=== PATIENT | female | born 1970 | race American Indian/Alaskan Native ===

== ENCOUNTER 2017-07-01 17:49 | Emergency (ER) | payer SELFPAY ==
[2017-07-01 18:00] VITALS: BP 162/107
== END 2017-07-01 18:41 | disposition left against medical advice (07) ==
LOC: ED 17:49
DX: G43.909 Migraine, unspecified, not intractable, without status migrainosus (principal); Z53.21 Procedure and treatment not carried out due to patient leaving prior to being seen by health care provider

== ENCOUNTER 2017-07-02 21:25 | Emergency (ER) | payer SELFPAY ==
[2017-07-02] MEDS ORDERED: CATAPRES ONE (23:13)
[2017-07-02] MEDS ORDERED: CATAPRES PO ONE (23:18)
[2017-07-03] MEDS ORDERED: BOOSTRIX IM ONE (00:11)
--- NOTE | 2017-07-03 00:38 | XRay Report ---
FINAL REPORT EXAM: XR TIBIA FIBULA 2V LT HISTORY: Status post trauma, with laceration to mid leg. TECHNIQUE: Four total radiographs of the left lower leg were obtained. No prior studies are available for comparison. FINDINGS: There are multiple curvilinear radiopaque densities overlying images, presumably related to external clothing artifact. There is no fracture or dislocation. No metallic radiopaque foreign body is seen. No other discrete osseous abnormality is seen. No significant soft tissue abnormality is identified. IMPRESSION: No fracture, dislocation, or other osseous abnormality.
--- NOTE | 2017-07-03 00:42 | Emergency Department Report ---
ED Laceration HPI - HPI Chief Complaint: Wound/Laceration Stated Complaint: LT LEG PAIN Time Seen by Provider: 07/02/17 23:57 Occurred When: Today Severity: moderate Tetanus Status: Not up to Date Laceration Symptoms: Yes Weakness, Yes Pain (5/10), No Foreign Body Sensation, No Numbness ED Review of Systems ROS: Stated complaint: LT LEG PAIN Other details as noted in HPI Constitutional: denies: chills, fever Eyes: denies: eye pain, eye discharge, vision change ENT: denies: ear pain, throat pain Respiratory: denies: cough, shortness of breath, wheezing Cardiovascular: denies: chest pain, palpitations Endocrine: no symptoms reported Gastrointestinal: denies: abdominal pain, nausea, diarrhea Genitourinary: denies: urgency, dysuria, discharge Musculoskeletal: other (lacerion left tib fib ) Skin: denies: rash, lesions Neurological: denies: headache, weakness, paresthesias ED Past Medical Hx - Past Medical History Hx Headaches / Migraines: Yes - Social History Smoking Status: Never Smoker Substance Use Type: None - Medications Home Medications: Home Medications Medication Instructions Recorded Confirmed Last Taken Type Cephalexin [Keflex] 500 mg PO Q8HR #21 cap 07/03/17 Unknown Rx traMADol [Ultram] 50 mg PO Q6HR PRN #12 tablet 07/03/17 Unknown Rx Laceration Physical Exam - Exam General: Vital signs noted. No distress. Alert and acting appropriately. Laceration Location: Lower Extremity Full Body Front + Back: 1 - left tib/fib laceraion 2 cm no nerve or tendon involve, rom intact bleedin controlled Laceration Exam: Yes Normal Distal CMS, No Foreign Body, No Exposed Tendon, Vessel, or Nerve, No Tendon Injury ED Course Vital Signs 07/02/17 07/02/17 21:42 23:18 Temperature 98.2 F Pulse Rate 58 L 89 Respiratory 20 Rate Blood Pressure 208/107 204/114 O2 Sat by Pulse 100 Oximetry - Laceration /Wound Repair Left Lower Anterior Leg Wound Location: lower extremity Wound Length (cm): 2 Wound's Depth, Shape: superficial Wound Explored: clean Betadine Prep?: Yes Anesthesia: 1% Lidocaine Volume Anesthetic (ccs): 2 Wound Debrided: minimal Wound Repaired With: sutures Suture Size/Type: 3:0, proline Number of Sutures: 6 Layer Closure?: No Sterile Dressing Applied?: Yes Progress: left lower extrem laceration 2 cm superficial no nerve tendon or muscle inovlement no bleeding rom intact , suture repair wti 3. 0 prolene x 6 sutures running pt tolerating same with minimal distress all bleeding is controlled tetanus administered pt for dc to home at this time given wound care instructions pt is ambulatory gait is steady. ED Medical Decision Making - Radiology Data Radiology results: report reviewed, image reviewed no fracture no foreign body, - Medical Decision Making laceration left tibfib repair see procedure note all bleeding controlled pt tolerated procedure with minimal distress Critical care attestation.: If time is entered above; I have spent that time in minutes in the direct care of this critically ill patient, excluding procedure time. ED Disposition Clinical Impression: Laceration of lower leg, left Qualifiers: Encounter type: initial encounter Qualified Code(s): S81.812A - Laceration without foreign body, left lower leg, initial encounter Disposition: DC-01 TO HOME OR SELFCARE Is pt being admited?: No Does the pt Need Aspirin: No Condition: Good Instructions: Laceration (ED) Prescriptions: Cephalexin [Keflex] 500 mg PO Q8HR #21 cap traMADol [Ultram] 50 mg PO Q6HR PRN #12 tablet PRN Reason: Pain Referrals: PRIMARY CARE, [Primary Care Provider] - 3-5 Days Forms: Work/School Release Form(ED) Time of Disposition: 00:47
[2017-07-03 05:25] VITALS: BP 134/89
== END 2017-07-03 01:00 | disposition home or self-care (01) ==
LOC: ED 21:25
DX: S81.812A Laceration without foreign body, left lower leg, initial encounter (principal); X58.XXXA Exposure to other specified factors, initial encounter; Y93.89 Activity, other specified; Y92.89 Other specified places as the place of occurrence of the external cause; Y99.8 Other external cause status
CPT/HCPCS: 90471; 90715

== ENCOUNTER 2017-10-06 05:22 | Emergency (ER) | payer MEDICAID, OTHER ==
[2017-10-06 05:36] VITALS: BP 186/119
[2017-10-06] MEDS ORDERED: ASPIRIN PO ONE (05:36)
== END 2017-10-06 05:35 | disposition left against medical advice (07) ==
LOC: ED 05:22
DX: R07.89 Other chest pain (principal); Z53.21 Procedure and treatment not carried out due to patient leaving prior to being seen by health care provider
CPT/HCPCS: 93005; 93010

== ENCOUNTER 2017-11-07 17:11 | Emergency (ER) | payer SELFPAY ==
--- NOTE | 2017-11-07 22:08 | Emergency Department Report ---
Upper Extremity - HPI Chief Complaint: Extremity Injury, Upper Stated Complaint: CHEST PAINS/POSS PULLED MUSCLE Time Seen by Provider: 11/07/17 22:07 Upper Extremity: Right Shoulder, Right Arm Occurred When: 2 Days Symptoms: Yes Pain with Movement (muscle of the scapular area), No Deformity, No Limited Range of Movement, No Numbness, No Weakness, No Swelling, No Bruising /Ecchymosis, No Laceration or Abrasion Other History: 47-year-old -[place] female comes in complaining of pain to the right arm right shoulder and neck. Patient states 2 days ago she pulled a door off its hinges. Patient put she took Toradol 10 mg 6 hours ago. She reports it did not help. Patient denies any direct trauma or fall. She is a past medical history of migraines. No known drug allergies. ED Review of Systems ROS: Stated complaint: CHEST PAINS/POSS PULLED MUSCLE Other details as noted in HPI Comment: All other systems reviewed and negative Musculoskeletal: arthralgia, myalgia. denies: joint swelling ED Past Medical Hx - Past Medical History Hx Headaches / Migraines: Yes - Surgical History Past Surgical History?: No - Social History Smoking Status: Never Smoker Substance Use Type: None - Medications Home Medications: Home Medications Medication Instructions Recorded Confirmed Last Taken Type cephALEXin [Keflex] 500 mg PO Q8HR #21 cap 07/03/17 Unknown Rx traMADol [Ultram] 50 mg PO Q6HR PRN #12 tablet 07/03/17 Unknown Rx Cyclobenzaprine [Flexeril 10 MG 10 mg PO TID 5 Days #15 tablet 11/07/17 Unknown Rx TAB] Naproxen [Naprosyn TAB] 500 mg PO BID 10 Days #20 tablet 11/07/17 Unknown Rx amLODIPine [Norvasc] 10 mg PO DAILY #60 tab 11/07/17 Unknown Rx Upper Extremity Exam - Exam General: Vital signs noted. No distress. Alert and acting appropriately. Head and Torso: No HEENT Abnormality, No Neck Tenderness, No Chest/Lungs Abnormality, No Abdominal Tenderness, No Back Tenderness Shoulder Exam: Yes Shoulder Tenderness (right trapezius), Yes Normal Range of Motion in Shoulder, No Clavicle Tenderness, No Shoulder Deformity, No AC Joint Tenderness Arm Exam: No Arm/Humerus Tenderness, No Arm Deformity Elbow: Yes Normal Range of Motion in Elbow, No Elbow Tenderness, No Elbow Deformity Wrist: Yes Normal ROM in Wrist, No Wrist Tenderness, No Wrist Deformity, No Snuffbox Tenderness, No Pain with Axial Thumb Compression Hand: Yes Normal ROM in Digit(s), No Hand Tenderness, No Hand Deformity, No Digit Tenderness, No Digit(s) Deformity, No Tendon Dysfunction CMS Exam: No Broken Skin, No Normal Distal Pulses, No Normal Capillary Refill, No Normal Distal Sensation Front/Back of Body, Lg (Color): 1 - tenderness with touch and movement of shoulder ED Course Vital Signs 11/07/17 17:48 Temperature 98.6 F Pulse Rate 61 Respiratory 16 Rate Blood Pressure 178/109 O2 Sat by Pulse 99 Oximetry ED Medical Decision Making - Medical Decision Making Patient has been evaluated by this provider fast track. Given patient Flexeril 10 mg by mouth and naproxen 500 mg by mouth for pain management. Discussed the patient is she's had no trauma or direct blow to her shoulder back or neck. That x-rays are not needed at this time. Discussed patient is is most likely a muscle strain and we would treat conservatively with Flexeril and naproxen. Discussed patient if her symptoms persist or gets worse to follow -up with an orthopedic provider as she may need a MRI in the future. Patient verbalized understanding. Patient has elevated blood pressure she reports she's been out of her medication for a while. She reports that she was taken to amlodipine 10 mg daily. I discussed patient that I will refill her medication and stressed importance of following up with [facility]. Brochure was given to patient for [facility] as well as good Rx card given and explained to her that amlodipine is free at [facility]. Patient denies any change of vision denies any chest pain denies any headache. Critical care attestation.: If time is entered above; I have spent that time in minutes in the direct care of this critically ill patient, excluding procedure time. ED Disposition Clinical Impression: Shoulder strain Qualifiers: Encounter type: initial encounter Laterality: right Qualified Code(s): S46.911A - Strain of unspecified muscle, fascia and tendon at shoulder and upper arm level, right arm, initial encounter Acute strain of neck muscle Qualifiers: Encounter type: initial encounter Qualified Code(s): S16.1XXA - Strain of muscle, fascia and tendon at neck level, initial encounter HTN (hypertension) Qualifiers: Hypertension type: unspecified Qualified Code(s): I10 - Essential (primary) hypertension Disposition: TO HOME OR SELFCARE Is pt being admited?: No Does the pt Need Aspirin: No Condition: Stable Instructions: Naproxen (By mouth), Cyclobenzaprine (By mouth), Cervical Spine Strain (ED), Muscle Strain (ED), Rotator Cuff Injury (ED), Hypertension (ED) Additional Instructions: Please take pain medication as needed. If her symptoms persist or gets worse please follow up with orthopedic for reevaluation. Prescriptions: amLODIPine [Norvasc] 10 mg PO DAILY #60 tab Cyclobenzaprine [Flexeril 10 MG TAB] 10 mg PO TID 5 Days #15 tablet Naproxen [Naprosyn TAB] 500 mg PO BID 10 Days #20 tablet Referrals: PRIMARY CAREMD [Primary Care Provider] - 3-5 Days JENNIFER LYONS MD [Staff Physician] - 3-5 Days ELLIOT MALDONADO MD [Staff Physician] - 3-5 Days
[2017-11-07] MEDS ORDERED: FLEXERIL PO ONE (22:18)
[2017-11-07] MEDS ORDERED: NAPROSYN PO ONE (22:18)
[2017-11-07 23:07] VITALS: BP 167/113
== END 2017-11-07 23:06 | disposition home or self-care (01) ==
LOC: ED 17:11
DX: S46.911A Strain of unspecified muscle, fascia and tendon at shoulder and upper arm level, right arm, initial encounter (principal); S16.1XXA Strain of muscle, fascia and tendon at neck level, initial encounter; I10 Essential (primary) hypertension; G43.909 Migraine, unspecified, not intractable, without status migrainosus; X58.XXXA Exposure to other specified factors, initial encounter; Y93.89 Activity, other specified; Y92.89 Other specified places as the place of occurrence of the external cause; Y99.8 Other external cause status
CPT/HCPCS: 99282

== ENCOUNTER 2018-10-09 11:46 | Emergency (ER) | payer MEDICAID ==
--- NOTE | 2018-10-09 12:11 | Event Note ---
ED Screening Note ED Screening Note: pt presents for CONKLIN and anxiety and elevated blood pressure has not taken her high blood pressure medication in 3 days has not been to her doctor so she does not have any more refills hx of migraines This initial assessment/diagnostic orders/clinical plan/treatment(s) is/are subject to change based on patients health status, clinical progression and re- assessment by fellow clinical providers in the ED. Further treatment and workup at subsequent clinical providers discretion. Patient/guardian urged not to elope from the ED as their condition may be serious if not clinically assessed and managed.
[2018-10-09 12:13] VITALS: BP 155/97
[2018-10-09] MEDS ORDERED: ULTRAM PO ONE (13:19)
--- NOTE | 2018-10-09 13:25 | Emergency Department Report ---
ED General Adult HPI - General Chief complaint: High BP Stated complaint: HIGH BP/NAUSEA Time Seen by Provider: 10/09/18 12:10 Source: patient Mode of arrival: Ambulatory Limitations: No Limitations - History of Present Illness Initial comments: Mrs. Rosenthal is a 48-year-old female with history of hypertension, migraine headache and anxiety who presents with elevated blood pressure. She stated that her home reading was systolic 190 mm HG. she has been under a lot of stress. She desired medication for anxiety. She also has mild frontal headache which is typical for previous headaches. No suicidal or homicidal ideation. She has been living back and forth between [place] and [place]. She is attempted to establish medical care here in [place]. She says "I am starting all over. -: Gradual, days(s) (3) Location: head Severity scale (0 -10): 5 Quality: aching, dull Consistency: constant Improves with: none Worsens with: none Associated Symptoms: other (anxiety elevated blood pressure) - Related Data Previous Rx's Medication Instructions Recorded Last Taken Type cephALEXin [Keflex] 500 mg PO Q8HR #21 cap 07/03/17 Unknown Rx traMADol [Ultram] 50 mg PO Q6HR PRN #12 tablet 07/03/17 Unknown Rx Naproxen [Naprosyn TAB] 500 mg PO BID 10 Days #20 tablet 11/07/17 Unknown Rx Cyclobenzaprine [Flexeril 10 MG 10 mg PO TID PRN 5 Days #12 tablet 06/28/18 Unknown Rx TAB] Ibuprofen [Ibuprofen 800] 800 mg PO Q8H PRN #20 tablet 06/28/18 Unknown Rx amLODIPine [Norvasc] 10 mg PO DAILY #30 tab 06/28/18 Unknown Rx amLODIPine [Norvasc] 10 mg PO DAILY 90 Days #90 tab 10/09/18 Unknown Rx Allergies Allergy/AdvReac Type Severity Reaction Status Date / Time No Known Allergies Allergy Verified 10/09/18 11:48 ED Review of Systems ROS: Stated complaint: HIGH BP/NAUSEA Other details as noted in HPI Comment: All other systems reviewed and negative Constitutional: denies: fever, malaise Cardiovascular: denies: chest pain ED Past Medical Hx - Past Medical History Previous Medical History?: Yes Hx Hypertension: Yes Hx Headaches / Migraines: Yes Hx Psychiatric Treatment: Yes (anxiety) - Surgical History Past Surgical History?: Yes Additional Surgical History: right ankle - Social History Smoking Status: Never Smoker Substance Use Type: None - Medications Home Medications: Home Medications Medication Instructions Recorded Confirmed Last Taken Type cephALEXin [Keflex] 500 mg PO Q8HR #21 cap 07/03/17 Unknown Rx traMADol [Ultram] 50 mg PO Q6HR PRN #12 tablet 07/03/17 Unknown Rx Naproxen [Naprosyn TAB] 500 mg PO BID 10 Days #20 tablet 11/07/17 Unknown Rx Cyclobenzaprine [Flexeril 10 MG 10 mg PO TID PRN 5 Days #12 tablet 06/28/18 Unknown Rx TAB] Ibuprofen [Ibuprofen 800] 800 mg PO Q8H PRN #20 tablet 06/28/18 Unknown Rx amLODIPine [Norvasc] 10 mg PO DAILY #30 tab 06/28/18 Unknown Rx amLODIPine [Norvasc] 10 mg PO DAILY 90 Days #90 tab 10/09/18 Unknown Rx ED Physical Exam - General Limitations: No Limitations General appearance: alert, in no apparent distress - Head Head exam: Present: atraumatic, normocephalic - Eye Eye exam: Present: normal appearance - ENT ENT exam: Present: mucous membranes moist - Neck Neck exam: Present: normal inspection - Respiratory Respiratory exam: Present: normal lung sounds bilaterally. Absent: respiratory distress, wheezes, rales, rhonchi - Cardiovascular Cardiovascular Exam: Present: regular rate, normal rhythm, normal heart sounds. Absent: systolic murmur, diastolic murmur, rubs, gallop - GI/Abdominal GI/Abdominal exam: Present: soft, normal bowel sounds. Absent: distended, tenderness, guarding, rebound - Extremities Exam Extremities exam: Present: normal inspection - Back Exam Back exam: Present: normal inspection - Neurological Exam Neurological exam: Present: alert, oriented X3 - Psychiatric Psychiatric exam: Present: normal affect, normal mood - Skin Skin exam: Present: warm, dry, intact, normal color. Absent: rash ED Course Vital Signs 10/09/18 12:08 Temperature 98.1 F Pulse Rate 55 L Respiratory 16 Rate Blood Pressure 155/97 O2 Sat by Pulse 100 Oximetry ED Medical Decision Making - Medical Decision Making 1. tension headache, typical headache for patient, mild in severity. She appears comfortable. No red flags to indicate a dangerous type headache. It just with oral analgesic administered in the emergency department 2. Anxiety, referred to [facility]. 3. Hypertension, medication refill. According to electronic medical record she has previously been prescribed amlodipine 10 mg tablets. I have prescribed a 90 day supply of amlodipine. Critical care attestation.: If time is entered above; I have spent that time in minutes in the direct care of this critically ill patient, excluding procedure time. ED Disposition Clinical Impression: Hypertension, Anxiety, Tension headache Disposition: TO HOME OR SELFCARE Is pt being admited?: No Does the pt Need Aspirin: No Condition: Stable Instructions: Hypertension (ED), Tension Headache (ED), Anxiety (ED) Prescriptions: amLODIPine [Norvasc] 10 mg PO DAILY 90 Days #90 tab Referrals: [facility] [Outside] - 3-5 Days [facility] [Outside] - 3-5 Days
== END 2018-10-09 13:38 | disposition home or self-care (01) ==
LOC: ED 11:46
DX: I10 Essential (primary) hypertension (principal); F41.9 Anxiety disorder, unspecified; G43.909 Migraine, unspecified, not intractable, without status migrainosus; Z98.890 Other specified postprocedural states; Z79.899 Other long term (current) drug therapy
CPT/HCPCS: 99282

== ENCOUNTER 2019-06-25 02:56 | Emergency (ER) | payer MEDICAID ==
[2019-06-25] MEDS ORDERED: ASPIRIN 325 MG TAB PO ONE (03:03)
[2019-06-25] MEDS ORDERED: LIDOCAINE VISCOUS 2% 15 ML ORAL LIQD PO ONE (03:26)
[2019-06-25] MEDS ORDERED: ALUM-MAG HYDROXIDE-SIMETHICONE 200-200-20MG/5ML ORAL LIQD 30 ML PO ONE (03:26)
--- NOTE | 2019-06-25 03:28 | Emergency Department Report ---
ED Chest Pain HPI - General Chief Complaint: Chest Pain Stated Complaint: CHEST PAIN Time Seen by Provider: 06/25/19 03:18 Source: patient Mode of arrival: Ambulatory Limitations: No Limitations - History of Present Illness Initial Comments: 49-year-old -Tog[place] female presents to the emergency department from home with a complaint of some midsternal chest discomfort that is been going on for the past 2 days. It worsens after eating and when laying flat. She says it feels like there is something stuck in there but she does not actually think that there is food lodged inside. She tried some Pepcid AC with some transient relief. She has a past medical history of hypertension, migraine headaches and anxiety. She denies any fever, shortness of breath, nausea and vomiting but does have some increased burping. No recent travel or sick contacts at home. She does not have a primary care physician. Denies any tobacco or illicit drug use. Severity scale (0 -10): 10 - Related Data Previous Rx's Medication Instructions Recorded Last Taken Type cephALEXin [Keflex] 500 mg PO Q8HR #21 cap 07/03/17 Unknown Rx traMADoL [Ultram] 50 mg PO Q6HR PRN #12 tablet 07/03/17 Unknown Rx Naproxen [Naprosyn TAB] 500 mg PO BID 10 Days #20 tablet 11/07/17 Unknown Rx Cyclobenzaprine [Flexeril 10 MG 10 mg PO TID PRN 5 Days #12 tablet 06/28/18 Unknown Rx TAB] Ibuprofen [Ibuprofen 800] 800 mg PO Q8H PRN #20 tablet 06/28/18 Unknown Rx amLODIPine 10 mg PO DAILY #30 tab 06/28/18 Unknown Rx amLODIPine 10 mg PO DAILY 90 Days #90 tab 10/09/18 Unknown Rx Omeprazole 20 mg PO QDAY #20 capsule. 06/25/19 Unknown Rx Allergies Allergy/AdvReac Type Severity Reaction Status Date / Time No Known Allergies Allergy Verified 10/09/18 11:48 Heart Score - HEART Score History: Slightly suspicious EKG: Normal Age: 45-65 Risk factors: 1-2 risk factors Troponin: < normal limit HEART Score: 2 - Critical Actions Critical Actions: 0-3 pts:0.9-1.7%risk of adverse cardiac event.Candidate for discharge ED Review of Systems ROS: Stated complaint: CHEST PAIN Other details as noted in HPI Comment: All other systems reviewed and negative Constitutional: denies: chills, fever Eyes: denies: eye pain, vision change ENT: denies: ear pain, throat pain Respiratory: denies: cough, shortness of breath Cardiovascular: chest pain. denies: palpitations Gastrointestinal: denies: abdominal pain, vomiting Genitourinary: denies: dysuria, discharge Musculoskeletal: denies: back pain, arthralgia Skin: denies: rash, lesions Neurological: denies: headache, weakness ED Past Medical Hx - Past Medical History Previous Medical History?: Yes Hx Hypertension: Yes Hx Headaches / Migraines: Yes Hx Psychiatric Treatment: Yes (anxiety) - Surgical History Past Surgical History?: Yes Additional Surgical History: right ankle. left toe - Social History Smoking Status: Never Smoker Substance Use Type: None - Medications Home Medications: Home Medications Medication Instructions Recorded Confirmed Last Taken Type cephALEXin [Keflex] 500 mg PO Q8HR #21 cap 07/03/17 Unknown Rx traMADoL [Ultram] 50 mg PO Q6HR PRN #12 tablet 07/03/17 Unknown Rx Naproxen [Naprosyn TAB] 500 mg PO BID 10 Days #20 tablet 11/07/17 Unknown Rx Cyclobenzaprine [Flexeril 10 MG 10 mg PO TID PRN 5 Days #12 tablet 06/28/18 Unknown Rx TAB] Ibuprofen [Ibuprofen 800] 800 mg PO Q8H PRN #20 tablet 06/28/18 Unknown Rx amLODIPine 10 mg PO DAILY #30 tab 06/28/18 Unknown Rx amLODIPine 10 mg PO DAILY 90 Days #90 tab 10/09/18 Unknown Rx Omeprazole 20 mg PO QDAY #20 capsule. 06/25/19 Unknown Rx ED Physical Exam - General Limitations: No Limitations - Other Other exam information: GENERAL: The patient is well-developed well-nourished. HENT: Normocephalic. Atraumatic. Patient has moist mucous membranes. EYES: Extraocular motions are intact. NECK: Supple. Trachea is midline. CHEST/LUNGS: Clear to auscultation. There is no respiratory distress noted. HEART/CARDIOVASCULAR: Regular. There is no tachycardia. ABDOMEN: Abdomen is soft, nontender. Patient has normal bowel sounds. SKIN: Skin is warm and dry. NEURO: The patient is awake, alert, and oriented. The patient is cooperative. The patient has no focal neurologic deficits. Normal speech. MUSCULOSKELETAL: There is no tenderness or deformity. There is no evidence of acute injury. ED Course Vital Signs 06/25/19 06/25/19 06/25/19 03:06 03:20 03:45 Temperature 97.8 F 98.3 F Pulse Rate 74 74 57 L Respiratory 18 14 17 Rate Blood Pressure 166/100 Blood Pressure 191/124 164/102 [Right] O2 Sat by Pulse 100 99 99 Oximetry 06/25/19 06/25/19 04:00 04:15 Temperature Pulse Rate 54 L 59 L Respiratory 18 15 Rate Blood Pressure 168/90 168/96 Blood Pressure [Right] O2 Sat by Pulse 98 97 Oximetry TYSON score - Tyson Score Age > 65: (0) No Aspirin use within the Past 7 Days: (0) No 3 or more CAD Risk Factors: (0) No 2 or more Angina events in past 24 hrs: (1) Yes (If pain is considered angina) Known CAD with more than 50% Stenosis: (0) No Elevated Cardiac Markers: (0) No ST Deviation Greater than 0.5mm: (0) No TYSON Score: 1 ED Medical Decision Making - Lab Data Result diagrams: 06/25/19 03:16 06/25/19 03:16 - EKG Data -: EKG Interpreted by Me EKG shows normal: sinus rhythm, axis, intervals, QRS complexes (LVH), ST-T waves Rate: normal - EKG Data When compared to previous EKG there are: previous EKG unavailable Interpretation: LVH - Radiology Data Radiology results: image reviewed interpreted by me: Chest x-ray does not show any acute process. There are no pleural effusions, obvious pneumonia and there is no pneumothorax. - Medical Decision Making This patient presents to the emergency department with a complaint of a 2-day history of some midsternal intermittent chest discomfort that feels like there is something stuck inside of the chest. While it is not a burning sensation, the patient does have increased burping and says that the pain worsens when she is laying flat and after meals. She was given a GI cocktail and upon reevaluation she is feeling improved. Patient had a chest x-ray that did not show any pneumonia, pleural effusions, pneumothorax, or any other acute process. EKG did not show any signs of ST elevation [place]. Patient's labs have been mostly unremarkable including CBC, metabolic panel and negative troponins x2. She is low on the Wells score criteria and negative on the pulmonary embolism rule out criteria. Patient has a low heart and TYSON score. Even though there may be GI involvement and her chest discomfort, the patient's contact information has been sent over to [facility] [place] and someone from their office should be contacting her shortly for close outpatient follow- up as per our chest pain rule out protocol. The patient will be started on omeprazole. We discussed dietary and/or lifestyle changes to make to assist with GERD. Patient will return to the emergency department with any worsening of her symptoms or any acute distress. Critical Care Time: No Critical care attestation.: If time is entered above; I have spent that time in minutes in the direct care of this critically ill patient, excluding procedure time. ED Disposition Clinical Impression: Chest pain, atypical GERD (gastroesophageal reflux disease) Qualifiers: Esophagitis presence: esophagitis presence not specified Qualified Code(s): K21.9 - Gastro-esophageal reflux disease without esophagitis Hypertension Qualifiers: Hypertension type: essential hypertension Qualified Code(s): I10 - Essential (primary) hypertension Disposition: TO HOME OR SELFCARE Is pt being admited?: No Condition: Stable Instructions: Chest Pain (ED), Diet for Ulcers and Gastritis (ED), Gastroesophageal Reflux Disease (ED), Hypertension (ED) Additional Instructions: Please follow-up with a primary care physician in the next few days. Your contact information has been sent over to the [facility] [place] and someone from their office should be contacting you shortly for close outpatient follow-up. Return to the emergency department with any worsening of your symptoms or any acute distress. Prescriptions: Omeprazole 20 mg PO QDAY #20 capsule. Referrals: DOROTA GARCIA MD [Primary Care Provider] - 2-3 Days IHSAN FOLEY MD [Staff Physician] - 2-3 Days EUNICE BOURGEOIS MD [Staff Physician] - 2-3 Days [facility] [Provider Group] - 2-3 Days Time of Disposition: 05:27
[2019-06-25 03:30] LABS: Basophils % (Auto) 0.4 % (0.0-1.8); Eosinophils # (Auto) 0.2 K/mm3 (0.0-0.4); Eosinophils % (Auto) 3.1 % (0.0-4.3); Hematocrit 38.2 % (30.3-42.9); Hemoglobin 12.4 gm/dl (10.1-14.3); Lymphocytes % (Auto) 35.2 % (13.4-35.0); Mean Corpuscular HGB Conc 32 % (30-34); Mean Corpuscular Volume 84 fl (79-97); Monocytes # (Auto) 0.5 K/mm3 (0.0-0.8); Monocytes % (Auto) 8.3 % (0.0-7.3); Platelet Count 234 K/mm3 (140-440); Red Blood Count 4.53 M/mm3 (3.65-5.03); Red Cell Distribution Width 14.6 % (13.2-15.2)
--- NOTE | 2019-06-25 03:41 | XRay Report ---
CHEST 1 VIEW INDICATION: Chest Pain. COMPARISON: None. FINDINGS: Support devices: None. Heart: Within normal limits. Lungs/Pleura: No acute air space or interstitial disease. Lung volumes are diminished. Additional findings: None. IMPRESSION: No acute abnormality. Signer Name: Adan Valiente MD Signed: 06/25/2019 3:36 AM Workstation Name: [id number]
[2019-06-25 03:42] LABS: BUN/Creatinine Ratio 18; Blood Urea Nitrogen 14 mg/dL (7-17); Calcium 9.5 mg/dL (8.4-10.2); Hemolysis Index 5
[2019-06-25 05:31] VITALS: BP 169/104
== END 2019-06-25 05:33 | disposition home or self-care (01) ==
LOC: ED 02:56
DX: R07.89 Other chest pain (principal); K21.9 Gastro-esophageal reflux disease without esophagitis; I10 Essential (primary) hypertension; G43.909 Migraine, unspecified, not intractable, without status migrainosus; F41.9 Anxiety disorder, unspecified; Z98.890 Other specified postprocedural states; Z79.1 Long term (current) use of non-steroidal anti-inflammatories (NSAID); Z79.899 Other long term (current) drug therapy
CPT/HCPCS: 36415; 71045; 80048; 84484; 85025; 93005

== ENCOUNTER 2019-07-30 23:27 | Inpatient (IN) | payer MEDICAID ==
[2019-07-30] MEDS ORDERED: NITROGLYCERIN 0.4 MG TAB SUBL SL ONE (23:58)
[2019-07-30] MEDS ORDERED: ASPIRIN 81 MG TAB CHEW PO ONE (23:58)
--- NOTE | 2019-07-31 00:01 | Emergency Department Report ---
<DEMETRI KNIGHT - Last Filed: 07/30/19 23:58> ED Chest Pain HPI - General Chief Complaint: Chest Pain Stated Complaint: ABD CHEST PAIN Time Seen by Provider: 07/30/19 23:50 Source: patient Mode of arrival: Ambulatory Limitations: No Limitations - History of Present Illness MD Complaint: chest pain -: This morning Onset: during rest Pain Location: substernal Pain Radiation: none Severity: moderate Quality: heaviness - Related Data Previous Rx's Medication Instructions Recorded Last Taken Type cephALEXin [Keflex] 500 mg PO Q8HR #21 cap 07/03/17 Unknown Rx traMADoL [Ultram] 50 mg PO Q6HR PRN #12 tablet 07/03/17 Unknown Rx Naproxen [Naprosyn TAB] 500 mg PO BID 10 Days #20 tablet 11/07/17 Unknown Rx Cyclobenzaprine [Flexeril 10 MG 10 mg PO TID PRN 5 Days #12 tablet 06/28/18 Unknown Rx TAB] Ibuprofen [Ibuprofen 800] 800 mg PO Q8H PRN #20 tablet 06/28/18 Unknown Rx amLODIPine 10 mg PO DAILY #30 tab 06/28/18 Unknown Rx amLODIPine 10 mg PO DAILY 90 Days #90 tab 10/09/18 Unknown Rx Omeprazole 20 mg PO QDAY #20 capsule. 06/25/19 Unknown Rx Allergies Allergy/AdvReac Type Severity Reaction Status Date / Time No Known Allergies Allergy Verified 07/30/19 23:33 Heart Score - HEART Score History: Moderately suspicious EKG: Non-specific Age: 45-65 Risk factors: 1-2 risk factors Troponin: < normal limit HEART Score: 4 - Critical Actions Critical Actions: 4-6 pts:12-16.6% risk of adverse cardiac event. Should be admitted ED Review of Systems Comment: All other systems reviewed and negative Constitutional: denies: chills, fever Respiratory: denies: cough, shortness of breath, SOB with exertion, wheezing Cardiovascular: chest pain. denies: palpitations, dyspnea on exertion Gastrointestinal: denies: abdominal pain, nausea, vomiting Musculoskeletal: denies: back pain Neurological: denies: headache, weakness, numbness, paresthesias, confusion, abnormal gait ED Past Medical Hx - Past Medical History Hx Hypertension: Yes Hx Headaches / Migraines: Yes Hx Psychiatric Treatment: Yes (anxiety) - Surgical History Additional Surgical History: right ankle. left toe - Social History Smoking Status: Never Smoker Substance Use Type: None - Medications Home Medications: Home Medications Medication Instructions Recorded Confirmed Last Taken Type cephALEXin [Keflex] 500 mg PO Q8HR #21 cap 07/03/17 Unknown Rx traMADoL [Ultram] 50 mg PO Q6HR PRN #12 tablet 07/03/17 Unknown Rx Naproxen [Naprosyn TAB] 500 mg PO BID 10 Days #20 tablet 11/07/17 Unknown Rx Cyclobenzaprine [Flexeril 10 MG 10 mg PO TID PRN 5 Days #12 tablet 06/28/18 Unknown Rx TAB] Ibuprofen [Ibuprofen 800] 800 mg PO Q8H PRN #20 tablet 06/28/18 Unknown Rx amLODIPine 10 mg PO DAILY #30 tab 06/28/18 Unknown Rx amLODIPine 10 mg PO DAILY 90 Days #90 tab 10/09/18 Unknown Rx Omeprazole 20 mg PO QDAY #20 capsule. 06/25/19 Unknown Rx ED Physical Exam - General Limitations: No Limitations General appearance: alert, in no apparent distress - Head Head exam: Present: atraumatic, normocephalic, normal inspection - Eye Eye exam: Present: normal appearance - ENT ENT exam: Present: normal exam, normal orophraynx, mucous membranes moist - Neck Neck exam: Present: normal inspection, full ROM. Absent: tenderness, meningismus, lymphadenopathy, thyromegaly - Respiratory Respiratory exam: Present: normal lung sounds bilaterally - Cardiovascular Cardiovascular Exam: Present: regular rate, normal rhythm, normal heart sounds - GI/Abdominal GI/Abdominal exam: Present: soft, normal bowel sounds. Absent: distended, tend erness, guarding, rebound, rigid, organomegaly, mass, bruit, pulsatile mass, hernia - Extremities Exam Extremities exam: Present: normal inspection, full ROM, normal capillary refill. Absent: pedal edema, calf tenderness - Back Exam Back exam: Present: normal inspection, full ROM. Absent: CVA tenderness (R), CVA tenderness (L), muscle spasm, paraspinal tenderness, vertebral tenderness - Neurological Exam Neurological exam: Present: alert, oriented X3, CN II-XII intact, normal gait, reflexes normal - Psychiatric Psychiatric exam: Present: normal mood - Skin Skin exam: Present: warm, intact, normal color LILY score - Lily Score Age > 65: (0) No Aspirin use within the Past 7 Days: (0) No 3 or more CAD Risk Factors: (0) No 2 or more Angina events in past 24 hrs: (1) Yes (If pain is considered angina) Known CAD with more than 50% Stenosis: (0) No Elevated Cardiac Markers: (0) No ST Deviation Greater than 0.5mm: (0) No LILY Score: 1 ED Disposition Clinical Impression: Acute cholecystitis Chest pain Qualifiers: Chest pain type: unspecified Qualified Code(s): R07.9 - Chest pain, unspecified Abdominal pain Qualifiers: Abdominal location: unspecified location Qualified Code(s): R10.9 - Unspecified abdominal pain Cholelithiasis Qualifiers: Cholelithiasis location: bile duct Cholecystitis presence: with cholecystitis Cholecystitis acuity: acute Biliary obstruction: without biliary obstruction Qualified Code(s): K80.42 - Calculus of bile duct with acute cholecystitis without obstruction Disposition: OP ADMIT IP TO THIS HOSP Condition: Critical <DUNG WREN III - Last Filed: 07/31/19 02:47> ED Review of Systems ROS: Stated complaint: ABD CHEST PAIN Other details as noted in HPI ED Course Vital Signs 07/30/19 07/30/19 07/31/19 23:31 23:55 00:11 Temperature 98.3 F Pulse Rate 88 83 83 Respiratory 18 12 Rate Blood Pressure 187/110 187/105 Blood Pressure 178/88 [Left] O2 Sat by Pulse 98 100 Oximetry 07/31/19 00:43 Temperature Pulse Rate Respiratory 18 Rate Blood Pressure Blood Pressure [Left] O2 Sat by Pulse Oximetry - Reevaluation(s) Reevaluation #1: Patient was signed out to me by at change of shift. Patient was signed out for me to follow-up on CT scan and labs. 07/31/19 02:00 Reevaluation #2: Patient CT came back as positive for cholecystitis. I discussed all results with patient. I discussed plan of care with patient. Patient agrees with plan of care and admission. Patient to be admitted to the hospitalist service. 07/31/19 02:40 - Consultations Consultation #1: General surgery, Dr. Parada was consulted and I discussed case with Dr. Parada. Dr. Parada recommends admission, Zosyn, fluids, pain management and an ultrasound. 07/31/19 02:41 Consultation #2: Hospitalist consulted for admission. Hospitalist to admit patient. Bridge orders placed 07/31/19 02:45 ED Medical Decision Making - Lab Data Result diagrams: 07/31/19 00:32 07/31/19 00:32 - Radiology Data Radiology results: report reviewed CT ABDOMEN AND PELVIS WITH CONTRAST INDICATION: Acute substernal abdominal pain. COMPARISON: No relevant prior imaging study available. TECHNIQUE: Axial, coronal and sagittal CT imaging of the abdomen and pelvis was performed after injection of 100 cc Omnipaque [address] scans at this location are performed using CT dose reduction for ALARA by means of automated exposure control. FINDINGS: LOWER CHEST: No significant abnormality. LIVER: Multiple simple appearing cysts are seen throughout the liver measuring up to 1.5 cm along the lateral segment. No additional significant abnormality. BILIARY: Cholelithiasis is seen with mild gallbladder wall thickening and mild to moderate surrounding inflammation. The common bile duct is mildly dilated and measures 9 mm in AP diameter without distinct choledocholithiasis. PANCREAS: No significant abnormality. SPLEEN: No significant abnormality. ADRENALS: No significant abnormality. KIDNEYS AND URETERS: Simple appearing left renal cysts measure up to 2.6 cm along the upper pole. No additional significant abnormality. GI TRACT: Scattered colonic diverticulosis is seen without evidence of diverticulitis. No additional significant abnormality of the colon. No significant abnormality of the appendix, small bowel or stomach. PERITONEUM: No free fluid. No free air. No fluid collection. LYMPH NODES: No significant adenopathy. VASCULATURE: No significant abnormality. URINARY BLADDER: No significant abnormality. REPRODUCTIVE ORGANS: No significant abnormality. ADDITIONAL FINDINGS: None. SKELETAL SYSTEM: Mild to moderate degenerative changes are noted along the SI joints. No acute abnormality. IMPRESSION: 1. Cholelithiasis with suspected acute cholecystitis. 2. Mild intrahepatic and extrahepatic biliary ductal dilatation without distinct choledocholithiasis. Critical care attestation.: If time is entered above; I have spent that time in minutes in the direct care of this critically ill patient, excluding procedure time. ED Disposition Is pt being admited?: Yes Does the pt Need Aspirin: No Time of Disposition: 02:47
--- NOTE | 2019-07-31 00:19 | XRay Report ---
CHEST 1 VIEW 07/30/2019 11:55 PM INDICATION / CLINICAL INFORMATION: Chest Pain. COMPARISON: One view of the chest from 06/25/2019. FINDINGS: SUPPORT DEVICES: None. HEART / MEDIASTINUM: No significant abnormality. LUNGS / PLEURA: There is a probable small layering right pleural effusion with associated atelectasis . The lungs are otherwise clear. No pneumothorax. ADDITIONAL FINDINGS: No significant additional findings. IMPRESSION: Probable small right pleural effusion with associated atelectasis. Signer Name: Jeff Novak MD Signed: 07/31/2019 12:14 AM Workstation Name: [id number]
[2019-07-31] MEDS ORDERED: MORPHINE 4 MG/1 ML INJ IV ONE (00:33)
[2019-07-31] MEDS ORDERED: ONDANSETRON 4 MG/2 ML INJ IV ONE (00:33)
[2019-07-31 00:53] LABS: Basophils % (Auto) 0.2 % (0.0-1.8); Eosinophils % (Auto) 0.6 % (0.0-4.3); Hematocrit 34.8 % (30.3-42.9); Hemoglobin 11.4 gm/dl (10.1-14.3); Lymphocytes # (Auto) 1.2 K/mm3 (1.2-5.4); Mean Corpuscular HGB Conc 33 % (30-34); Mean Corpuscular Volume 83 fl (79-97); Monocytes # (Auto) 0.5 K/mm3 (0.0-0.8); Platelet Count 207 K/mm3 (140-440); Red Cell Distribution Width 14.2 % (13.2-15.2)
[2019-07-31 01:04] LABS: INR 1.12 (0.87-1.13); Partial Thromboplastin Time 28.4 Sec. (24.2-36.6)
[2019-07-31 01:23] LABS: BUN/Creatinine Ratio 14; Blood Urea Nitrogen 10 mg/dL (7-17); Hemolysis Index 10
[2019-07-31 01:28] LABS: Alanine Aminotransferase 17 units/L (7-56)
[2019-07-31] MEDS ORDERED: LIDOCAINE VISCOUS 2% 15 ML ORAL LIQD PO ONE (01:31)
[2019-07-31] MEDS ORDERED: ALUM-MAG HYDROXIDE-SIMETHICONE 200-200-20MG/5ML ORAL LIQD 30 ML PO ONE (01:31)
[2019-07-31 01:38] LABS: Bilirubin,Direct < 0.2 mg/dL (0-0.2)
--- NOTE | 2019-07-31 02:25 | Cat Scan Report ---
CT ABDOMEN AND PELVIS WITH CONTRAST INDICATION: Acute substernal abdominal pain. COMPARISON: No relevant prior imaging study available. TECHNIQUE: Axial, coronal and sagittal CT imaging of the abdomen and pelvis was performed after inje ction of 100 cc Omnipaque [address] scans at this location are performed using CT dose re duction for ALARA by means of automated exposure control. FINDINGS: LOWER CHEST: No significant abnormality. LIVER: Multiple simple appearing cysts are seen throughout the liver measuring up to 1.5 cm along the lateral segment. No additional significant abnormality. BILIARY: Cholelithiasis is seen with mild gallbladder wall thickening and mild to moderate surroundin g inflammation. The common bile duct is mildly dilated and measures 9 mm in AP diameter without disti nct choledocholithiasis. PANCREAS: No significant abnormality. SPLEEN: No significant abnormality. ADRENALS: No significant abnormality. KIDNEYS AND URETERS: Simple appearing left renal cysts measure up to 2.6 cm along the upper pole. No additional significant abnormality. GI TRACT: Scattered colonic diverticulosis is seen without evidence of diverticulitis. No additional significant abnormality of the colon. No significant abnormality of the appendix, small bowel or stom ach. PERITONEUM: No free fluid. No free air. No fluid collection. LYMPH NODES: No significant adenopathy. VASCULATURE: No significant abnormality. URINARY BLADDER: No significant abnormality. REPRODUCTIVE ORGANS: No significant abnormality. ADDITIONAL FINDINGS: None. SKELETAL SYSTEM: Mild to moderate degenerative changes are noted along the SI joints. No acute abnorm ality. IMPRESSION: 1. Cholelithiasis with suspected acute cholecystitis. 2. Mild intrahepatic and extrahepatic biliary ductal dilatation without distinct choledocholithiasis. Signer Name: Jeff Novak MD Signed: 07/31/2019 2:21 AM Workstation Name: [id number]
[2019-07-31] MEDS ORDERED: HYDROmorphone 1 MG/1 ML INJ ONE (02:38)
[2019-07-31] MEDS ORDERED: HYDROmorphone 1 MG/1 ML INJ IV ONE ×2 (02:40→10:00)
[2019-07-31] MEDS ORDERED: SODIUM CHLORIDE 0.9% 1000 ML 1,000 ML IV ONE ×2 (03:12)
[2019-07-31] MEDS ORDERED: PIPERACIL/TAZOBACTA 4.5/NS 100 4.5 GM/100 ML VIAL IV ONE (03:12)
[2019-07-31] MEDS ORDERED: ONDANSETRON 4 MG/2 ML INJ IV PRN (03:58)
[2019-07-31] MEDS ORDERED: ACETAMINOPHEN 325 MG TAB PO PRN (03:58)
[2019-07-31] MEDS ORDERED: POTASSIUM CHLORIDE 10 MEQ 10 MEQ/100 ML BAG IV ONE ×2 (04:02→09:00)
--- NOTE | 2019-07-31 04:13 | History and Physical Report ---
History of Present Illness Date of examination: 07/31/19 Date of admission: 07/31/2019 Chief complaint: Abdominal Pain Chest Discomfort History of present illness: 49-year-old -[place]iss female presenting to the emergency room today complaining of abdominal pain. Abdominal pain is said to radiate towards the mid sternal area. She denies any nausea vomiting, no diarrhea, no hematuria or dysuria, no headache or dizziness, no fever or chills.. She denies any recent travel and no sick contacts. There is no no relieving or exacerbating factor for abdominal pain. Work-up in the emergency room including CT scan of the abdomen and pelvis reveals acute cholecystitis with bile duct calculus. General surgeon Dr. Cespedes has been consulted by the ER physician patient will be promptly evaluated. Past History Past Medical History: hypertension Past Surgical History: Other (Right ankle and left toe surgery in the past) Social history: no significant social history Family history: no significant family history Medications and Allergies Allergies Allergy/AdvReac Type Severity Reaction Status Date / Time No Known Allergies Allergy Verified 07/30/19 23:33 Home Medications Medication Instructions Recorded Confirmed Last Taken Type cephALEXin [Keflex] 500 mg PO Q8HR #21 cap 07/03/17 Unknown Rx traMADoL [Ultram] 50 mg PO Q6HR PRN #12 tablet 07/03/17 Unknown Rx Naproxen [Naprosyn TAB] 500 mg PO BID 10 Days #20 tablet 11/07/17 Unknown Rx Cyclobenzaprine [Flexeril 10 MG 10 mg PO TID PRN 5 Days #12 tablet 06/28/18 Unknown Rx TAB] Ibuprofen [Ibuprofen 800] 800 mg PO Q8H PRN #20 tablet 06/28/18 Unknown Rx amLODIPine 10 mg PO DAILY #30 tab 06/28/18 Unknown Rx amLODIPine 10 mg PO DAILY 90 Days #90 tab 10/09/18 Unknown Rx Omeprazole 20 mg PO QDAY #20 capsule. 06/25/19 Unknown Rx Active Meds: Active Medications Acetaminophen (Tylenol) 650 mg PO Q4H PRN PRN Reason: Pain MILD(1-3)/Fever >100.5/CONKLIN Sodium Chloride (Nacl 0.9% 1000 Ml) 1,000 mls @ 250 mls/hr IV ONCE ONE Stop: 07/31/19 07:11 Sodium Chloride (Nacl 0.9% 1000 Ml) 1,000 mls @ 999 mls/hr IV BOLUS ONE Stop: 07/31/19 04:12 Sodium Chloride (Nacl 0.9% 1000 Ml) 1,000 mls @ 125 mls/hr IV DIRECT EDWIN Potassium Chloride (Kcl 10meq/100ml) 10 meq in 100 mls @ 100 mls/hr IV ONCE ONE Stop: 07/31/19 05:01 Piperacillin Sod/Tazobactam Sod (Zosyn/Ns 4.5gm/100ml) 4.5 gm in 100 mls @ 200 mls/hr IV Q8HR EDWIN; Protocol Morphine Sulfate (Morphine) 2 mg IV Q4H PRN PRN Reason: Pain, Moderate (4-6) Ondansetron HCl (Zofran) 4 mg IV Q8H PRN PRN Reason: Nausea And Vomiting Sodium Chloride (Sodium Chloride Flush Syringe 10 Ml) 10 ml IV BID EDWIN Sodium Chloride (Sodium Chloride Flush Syringe 10 Ml) 10 ml IV PRN PRN PRN Reason: LINE FLUSH Review of Systems Constitutional: no fever, no chills Cardiovascular: no palpitations, no syncope Respiratory: no cough, no shortness of breath Gastrointestinal: abdominal pain, no nausea, no vomiting, no diarrhea Genitourinary Female: no flank pain, no dysuria, no hematuria Musculoskeletal: no neck pain, no low back pain Integumentary: no rash, no pruritis Neurological: no headaches, no confusion Psychiatric: anxiety, no depression Exam - Constitutional Vitals: Temp Pulse Resp BP Pulse Ox 98.3 F 83 18 187/105 100 07/30/19 23:31 07/31/19 00:11 07/31/19 02:40 07/31/19 00:11 07/30/19 23:55 General appearance: Present: no acute distress, well-nourished - EENT Eyes: Present: PERRL, EOM intact ENT: hearing intact, clear oral mucosa, dentition normal - Neck Neck: Present: supple, normal ROM - Respiratory Respiratory effort: normal Respiratory: bilateral: CTA - Cardiovascular Rhythm: regular Heart Sounds: Present: S1 & S2. Absent: gallop, systolic murmur, diastolic murmur, rub - Extremities Extremities: no ischemia, pulses intact, pulses symmetrical, No edema, Full ROM Peripheral Pulses: within normal limits - Abdominal General gastrointestinal: Present: soft, tender (Moderate tenderness in the right upper quadrant), non-distended, normal bowel sounds. Absent: mass - Integumentary Integumentary: Present: clear, warm, dry - Musculoskeletal Musculoskeletal: strength equal bilaterally - Psychiatric Psychiatric: appropriate mood/affect, intact judgment & insight, memory intact, cooperative - Neurologic Neurologic: CNII-XII intact, moves all extremities HEART Score - HEART Score EKG: Non-specific Age: 45-65 Risk factors: 1-2 risk factors Troponin: Troponin T < 0.010 ng/mL (0.00-0.029) 07/31/19 03:23 Troponin: < normal limit - Critical Actions Critical Actions: 4-6 pts:12-16.6% risk of adverse cardiac event. Should be admitted Results - Labs CBC & Chem 7: 07/31/19 00:32 07/31/19 00:32 Labs: Abnormal lab results 07/31/19 07/31/19 07/31/19 Range/Units 00:32 00:32 00:32 MCH 27 L (28-32) pg Seg Neutrophils % 78.2 H (40.0-70.0) % Potassium 3.3 L (3.6-5.0) mmol/L Glucose 129 H (65-100) mg/dL Alkaline Phosphatase 130 H (35-129) units/L Lipase 11 L (13-60) units/L Assessment and Plan - Patient Problems (1) Acute cholecystitis Current Visit: Yes Status: Acute Plan to address problem: Patient admitted and placed n.p.o. Consult placed to general surgeon Dr. Parada for evaluation and recommendation. We will also place patient on empiric IV antibiotics. (2) Abdominal pain Current Visit: Yes Status: Acute Qualifiers: Abdominal location: unspecified location Qualified Code(s): R10.9 - Unspeci fied abdominal pain Plan to address problem: Possibly secondary to the cholecystitis bile ducts calculus. Will continue on IV analgesic medication. (3) Hypokalemia Current Visit: Yes Status: Acute Plan to address problem: Potassium will be repleted and will monitor chemistry. (4) DVT prophylaxis Current Visit: Yes Status: Acute Plan to address problem: Patient placed on sequential compression device. (5) Full code status Current Visit: Yes Status: Acute
[2019-07-31] MEDS ORDERED: SODIUM CHLORIDE 0.9% 1000 ML 1,000 ML ONE (04:38)
--- NOTE | 2019-07-31 04:42 | Ultrasound Report ---
ULTRASOUND ABDOMEN, LIMITED (RIGHT UPPER QUADRANT) INDICATION: Acute cholecystitis, biliary ductal dilatation, abdominal pain. COMPARISON: CT abdomen and pelvis with contrast from earlier today. FINDINGS: Pancreas: Visualized portion shows no significant abnormality. Liver: No significant abnormality. Gallbladder: Cholelithiasis is noted with a large amount of sludge in the gallbladder. The gallbladde r wall is mildly thickened and measures 3.5 mm without significant pericholecystic fluid. Sonographi c Stallworth's sign: Not performed. Bile ducts: No significant abnormality. Common Bile Duct measures 6 mm. Free fluid: None. Additional Findings: None. IMPRESSION: Cholelithiasis with nonspecific mild gallbladder wall thickening. Signer Name: Jeff Novak MD Signed: 07/31/2019 4:37 AM Workstation Name: [id number]
[2019-07-31] MEDS: MORPHINE 2 MG/1 ML INJ IV PRN ×4 (05:30→23:07)
[2019-07-31] MEDS ORDERED: hydrALAZINE 20 MG/1 ML INJ IV PRN (08:19)
--- NOTE | 2019-07-31 09:07 | Consultation ---
History of Present Illness Consult date: 07/31/19 Reason for consult: abdominal pain Requesting physician: DUNG WREN III Chief complaint: abdominal pain - History of present illness History of present illness: 49yo F presents with her third attack of abdominal pain in the past year. Radiographic evaluation by the emergency department suggested possible cholecystitis. General surgery was asked to consult. Patient reports that this current pain began about 2 days ago. It has been constant. Associated with nausea. Denies vomiting. Positive bloating. Denies any radiation of pain. The pain itself is across the middle of the abdomen. No involvement of the back or right shoulder. Denies any fevers or chills. Reports that this similar type of pain happened on 2 previous occasions. Both times were not as severe. The first time she presented to the emergency department. She is not aware of any diagnosis that was reached. The second episode she waited out at home. On both occasions, she reports that as soon as she had a bowel movement, her pain resolved. Past History Past Medical History: hypertension Past Surgical History: Other (Right ankle and left toe surgery in the past) Social history: no significant social history. denies: smoking, alcohol abuse Family history: no significant family history Medications and Allergies Allergies Allergy/AdvReac Type Severity Reaction Status Date / Time No Known Allergies Allergy Verified 07/30/19 23:33 Home Medications Medication Instructions Recorded Confirmed Last Taken Type cephALEXin [Keflex] 500 mg PO Q8HR #21 cap 07/03/17 07/31/19 Unknown Rx traMADoL [Ultram] 50 mg PO Q6HR PRN #12 tablet 07/03/17 07/31/19 Unknown Rx Naproxen [Naprosyn TAB] 500 mg PO BID 10 Days #20 tablet 11/07/17 07/31/19 Unknown Rx Cyclobenzaprine [Flexeril 10 MG 10 mg PO TID PRN 5 Days #12 tablet 06/28/18 07/31/19 Unknown Rx TAB] Ibuprofen [Ibuprofen 800] 800 mg PO Q8H PRN #20 tablet 06/28/18 07/31/19 Unknown Rx amLODIPine 10 mg PO DAILY #30 tab 06/28/18 07/31/19 Unknown Rx amLODIPine 10 mg PO DAILY 90 Days #90 tab 10/09/18 07/31/19 Unknown Rx Omeprazole 20 mg PO QDAY #20 capsule. 06/25/19 07/31/19 Unknown Rx Active Meds: Active Medications Acetaminophen (Tylenol) 650 mg PO Q4H PRN PRN Reason: Pain MILD(1-3)/Fever >100.5/CONKLIN Amlodipine Besylate (Amlodipine) 10 mg PO DAILY [facility] Clonidine HCl (Catapres-Tts Patch) 0.1 mg TD Th@1000 EDWIN Hydralazine HCl (Apresoline) 10 mg IV Q4HR PRN PRN Reason: Hypertension Last Admin: 07/31/19 08:29 Dose: 10 mg Documented by: Sodium Chloride (Nacl 0.9% 1000 Ml) 1,000 mls @ 75 mls/hr IV DIRECT EDWIN Piperacillin Sod/Tazobactam Sod (Zosyn/Ns 4.5gm/100ml) 4.5 gm in 100 mls @ 200 mls/hr IV Q8HR EDWIN; Protocol Potassium Chloride (Kcl 10meq/100ml) 10 meq in 100 mls @ 100 mls/hr IV ONCE ONE Stop: 07/31/19 09:59 Morphine Sulfate (Morphine) 2 mg IV Q4H PRN PRN Reason: Pain, Moderate (4-6) Last Admin: 07/31/19 05:30 Dose: 2 mg Documented by: Ondansetron HCl (Zofran) 4 mg IV Q8H PRN PRN Reason: Nausea And Vomiting Last Admin: 07/31/19 07:48 Dose: 4 mg Documented by: Sodium Chloride (Sodium Chloride Flush Syringe 10 Ml) 10 ml IV BID EDWIN Sodium Chloride (Sodium Chloride Flush Syringe 10 Ml) 10 ml IV PRN PRN PRN Reason: LINE FLUSH Review of Systems - Constitutional no fever, no chills, no chronic pain - Cardiovascular chest pain (resolved now), no shortness of breath - Respiratory no cough - Gastrointestinal abdominal pain, nausea, dyspepsia/bloating, no vomiting, no diarrhea, no heartburn, no belching - Genitourinary Genitourinary: no dysuria - Muskuloskeletal no low back pain - Integumentary no rash, no pruritis, no jaundice Exam Vital Signs Temp Pulse Resp BP Pulse Ox 98.3 F 88 18 187/110 98 07/30/19 23:31 07/30/19 23:31 07/30/19 23:31 07/30/19 23:31 07/30/19 23:31 - General physical appearance Positive: well developed, well nourished, no distress, moderate pain, obese - Eyes Positive: normal occular movement. Negative: icteric - Respiratory Positive: normal expansion, normal respiratory effort, clear to auscultation - Cardiovascular Rhythm: regular - Abdomen Abdomen: Present: soft, tender (minimal at epigastric area, RUQ, and periumbilical), bowel sounds hypoactive. Absent: distended, masses, guarding, rigid, wound, surgical scars - Integumentary no rash, no growths, no abnormal pigmentation - Neurologic Neurologic: alert and oriented to time, place and person, motor strength and sensation are grossly intact - Psychiatric Psychiatric: appropriate mood/affect, intact judgment & insight, cooperative Results - Labs 07/31/19 00:32 07/31/19 00:32 Abnormal lab results 07/31/19 07/31/19 07/31/19 Range/Units 00:32 00:32 00:32 MCH 27 L (28-32) pg Seg Neutrophils % 78.2 H (40.0-70.0) % Potassium 3.3 L (3.6-5.0) mmol/L Glucose 129 H (65-100) mg/dL Alkaline Phosphatase 130 H (35-129) units/L Lipase 11 L (13-60) units/L Diabetes panel 07/31/19 07/31/19 Range/Units 00:32 00:32 Sodium 138 (137-145) mmol/L Potassium 3.3 L (3.6-5.0) mmol/L Chloride 101.8 (98-107) mmol/L Carbon Dioxide 23 (22-30) mmol/L BUN 10 (7-17) mg/dL Creatinine 0.7 (0.7-1.2) mg/dL Glucose 129 H (65-100) mg/dL Calcium 9.0 (8.4-10.2) mg/dL AST 17 (5-40) units/L ALT 17 (7-56) units/L Alkaline Phosphatase 130 H (35-129) units/L Total Protein 7.7 (6.3-8.2) g/dL Albumin 4.0 (3.9-5) g/dL Calcium panel 07/31/19 07/31/19 Range/Units 00:32 00:32 Calcium 9.0 (8.4-10.2) mg/dL Albumin 4.0 (3.9-5) g/dL Pituitary panel 07/31/19 Range/Units 00:32 Sodium 138 (137-145) mmol/L Potassium 3.3 L (3.6-5.0) mmol/L Chloride 101.8 (98-107) mmol/L Carbon Dioxide 23 (22-30) mmol/L BUN 10 (7-17) mg/dL Creatinine 0.7 (0.7-1.2) mg/dL Glucose 129 H (65-100) mg/dL Calcium 9.0 (8.4-10.2) mg/dL Adrenal panel 07/31/19 07/31/19 Range/Units 00:32 00:32 Sodium 138 (137-145) mmol/L Potassium 3.3 L (3.6-5.0) mmol/L Chloride 101.8 (98-107) mmol/L Carbon Dioxide 23 (22-30) mmol/L BUN 10 (7-17) mg/dL Creatinine 0.7 (0.7-1.2) mg/dL Glucose 129 H (65-100) mg/dL Calcium 9.0 (8.4-10.2) mg/dL Total Bilirubin 0.30 (0.1-1.2) mg/dL AST 17 (5-40) units/L ALT 17 (7-56) units/L Alkaline Phosphatase 130 H (35-129) units/L Total Protein 7.7 (6.3-8.2) g/dL Albumin 4.0 (3.9-5) g/dL - Imaging CT scan - abdomen: report reviewed, image reviewed CT scan - pelvis: report reviewed, image reviewed US - abdomen: report reviewed, image reviewed Assessment and Plan - Patient Problems (1) Abdominal pain Current Visit: Yes Status: Acute Qualifiers: Abdominal location: upper abdomen, unspecified Qualified Code(s): R10.10 - Upper abdominal pain, unspecified Plan to address problem: Pt stable. By history and radiographic exam, it seems reasonable to think that she is having pain related to symptomatic cholelithiasis, possibly an obstructed gallbladder neck. However, the history of having similar episodes in the past that resolved with a bowel movement is unlikely to be related to any gallbladder pathology. Patient is interested in trying a laxative to see if that might help before we proceed to surgery. I will follow-up with her later today to see if the pain is improved after having a bowel movement. If not, then we will discuss the possibility of surgery. We will follow along. Please call with any questions. time=40min
[2019-07-31] MEDS ORDERED: cloNIDine TTS 0.1 MG/24 HR PATCH TD SCH (10:00)
[2019-07-31] MEDS: amLODIPine 10 MG TAB PO SCH (10:00)
--- NOTE | 2019-07-31 11:55 | Event Note ---
Date: 07/31/19 Patient reports the pain is better after the Dilaudid was given. She is waiting to get her laxative. No other issues or complaints. I looked at the CT again, there is stool in the right colon and some in the transverse colon. However, it does not appear to be an excessive amount. We will see if the laxative makes a difference. If not, we will discuss laparoscopic cholecystectomy.
--- NOTE | 2019-07-31 14:03 | Event Note ---
Date: 07/31/19 Patient seen and examine, no new complaints at this time, still with abdominal pain. Awaiting bowel movement
[2019-07-31] MEDS: PIPERACIL/TAZOBACTA 4.5/NS 100 4.5 GM/100 ML VIAL IV SCH ×2 (14:04→21:56)
--- NOTE | 2019-07-31 16:30 | Event Note ---
Date: 07/31/19 Returned to check on patient. She was sleeping and appeared comfortable.
[2019-07-31] MEDS: SODIUM CHLORIDE 0.9% 1000 ML 1,000 ML IV SCH (23:07)
[2019-08-01] MEDS: MORPHINE 2 MG/1 ML INJ IV PRN ×4 (04:49→22:09)
[2019-08-01] MEDS: PIPERACIL/TAZOBACTA 4.5/NS 100 4.5 GM/100 ML VIAL IV SCH ×3 (05:33→21:24)
[2019-08-01 06:56] LABS: Alanine Aminotransferase 23 units/L (7-56); Albumin 3.4 g/dL (3.9-5); BUN/Creatinine Ratio 14; Blood Urea Nitrogen 11 mg/dL (7-17); Calcium 8.5 mg/dL (8.4-10.2); Hemolysis Index 53
[2019-08-01 07:23] LABS: Bilirubin,Direct 0.3 mg/dL (0-0.2)
[2019-08-01] MEDS ORDERED: POTASSIUM CHLORIDE ER 20 MEQ TAB PO NR (08:48)
--- NOTE | 2019-08-01 08:55 | Progress Note ---
Assessment and Plan - Patient Problems (1) Abdominal pain Current Visit: Yes Status: Acute Qualifiers: Abdominal location: upper abdomen, unspecified Qualified Code(s): R10.10 - Upper abdominal pain, unspecified Plan to address problem: Pt stable. Patient continues to have pain but it is more focal in the right upper quadrant. My suspicion is that she has a stone obstructing the neck of t he gallbladder. Initially she wanted to try another laxative to see if she can have a bowel movement. Later she changed her mind and decided she wanted surgery. Procedure, risk, benefits were discussed. All questions were answered. Consent was obtained. Patient has been added to the OR schedule for today. We will follow along. Please call with any questions. time=15min Subjective Date of service: 08/01/19 Patient Reports: Positive: no new complaints, still having pain, no bowel movement. Negative: nausea Objective Vital Signs - 12hr 07/31/19 07/31/19 07/31/19 21:21 22:00 23:00 Temperature 98.9 F Pulse Rate 104 H Respiratory 16 20 Rate Respiratory 20 Rate [Abdomen] Blood Pressure 115/69 O2 Sat by Pulse 96 Oximetry 07/31/19 07/31/19 08/01/19 23:07 23:37 04:49 Temperature Pulse Rate Respiratory 20 18 18 Rate Respiratory Rate [Abdomen] Blood Pressure O2 Sat by Pulse Oximetry 08/01/19 08/01/19 04:51 05:19 Temperature 98.2 F Pulse Rate 100 H Respiratory 16 18 Rate Respiratory Rate [Abdomen] Blood Pressure 122/77 O2 Sat by Pulse 97 Oximetry - General physical appearance no distress, no pain, obese, other (looks a little better) - Eyes normal occular movement - Respiratory normal expansion, normal respiratory effort - Abdomen soft, tender (maximum point in RUQ), not guarding, not rigid - Integumentary no rash, no growths, no abnormal pigmentation - Psychiatric oriented to time, oriented to person, oriented to place, speech is normal, memory intact - Labs 08/01/19 08:36 08/01/19 05:30 Diabetes panel 08/01/19 Range/Units 05:30 Sodium 137 (137-145) mmol/L Potassium 3.4 L (3.6-5.0) mmol/L Chloride 99.8 (98-107) mmol/L Carbon Dioxide 22 (22-30) mmol/L BUN 11 (7-17) mg/dL Creatinine 0.8 (0.7-1.2) mg/dL Glucose 109 H (65-100) mg/dL Calcium 8.5 (8.4-10.2) mg/dL AST 29 (5-40) units/L ALT 23 (7-56) units/L Alkaline Phosphatase 113 (35-129) units/L Total Protein 7.5 (6.3-8.2) g/dL Albumin 3.4 L (3.9-5) g/dL Calcium panel 08/01/19 Range/Units 05:30 Calcium 8.5 (8.4-10.2) mg/dL Albumin 3.4 L (3.9-5) g/dL Pituitary panel 08/01/19 Range/Units 05:30 Sodium 137 (137-145) mmol/L Potassium 3.4 L (3.6-5.0) mmol/L Chloride 99.8 (98-107) mmol/L Carbon Dioxide 22 (22-30) mmol/L BUN 11 (7-17) mg/dL Creatinine 0.8 (0.7-1.2) mg/dL Glucose 109 H (65-100) mg/dL Calcium 8.5 (8.4-10.2) mg/dL Adrenal panel 08/01/19 Range/Units 05:30 Sodium 137 (137-145) mmol/L Potassium 3.4 L (3.6-5.0) mmol/L Chloride 99.8 (98-107) mmol/L Carbon Dioxide 22 (22-30) mmol/L BUN 11 (7-17) mg/dL Creatinine 0.8 (0.7-1.2) mg/dL Glucose 109 H (65-100) mg/dL Calcium 8.5 (8.4-10.2) mg/dL Total Bilirubin 0.70 (0.1-1.2) mg/dL AST 29 (5-40) units/L ALT 23 (7-56) units/L Alkaline Phosphatase 113 (35-129) units/L Total Protein 7.5 (6.3-8.2) g/dL Albumin 3.4 L (3.9-5) g/dL
[2019-08-01] MEDS ORDERED: MAGNESIUM CITRATE 300 ML ORAL LIQD PO NR (09:00)
[2019-08-01] MEDS ORDERED: HYDROcodone/ACETAMINOPHEN 5-325 MG TAB PO PRN (09:00)
[2019-08-01] MEDS: amLODIPine 10 MG TAB PO SCH (09:25)
[2019-08-01 09:37] LABS: Basophils % (Auto) 0.1 % (0.0-1.8); Hematocrit 36.8 % (30.3-42.9); Hemoglobin 12.2 gm/dl (10.1-14.3); Lymphocytes # (Auto) 0.9 K/mm3 (1.2-5.4); Lymphocytes % (Auto) 6.6 % (13.4-35.0); Mean Corpuscular HGB Conc 33 % (30-34); Mean Corpuscular Volume 83 fl (79-97); Monocytes # (Auto) 0.9 K/mm3 (0.0-0.8); Monocytes % (Auto) 6.6 % (0.0-7.3); Platelet Count 227 K/mm3 (140-440); Red Blood Count 4.42 M/mm3 (3.65-5.03); Red Cell Distribution Width 14.6 % (13.2-15.2)
[2019-08-01 09:59] LABS: INR 1.38 (0.87-1.13)
--- NOTE | 2019-08-01 15:02 | Progress Note ---
Assessment and Plan Assessment and plan: 49-year-old -Mal[place]ian female presenting to the emergency room today complaining of abdominal pain. Abdominal pain is said to radiate towards the mid sternal area. She denies any nausea vomiting, no diarrhea, no hematuria or dysuria, no headache or dizziness, no fever or chills.. She denies any recent travel and no sick contacts. There is no no relieving or exacerbating factor for abdominal pain. Work-up in the emergency room including CT scan of the abdomen and pelvis reveals acute cholecystitis with bile duct calculus. General surgeon Dr. Cespedes has been consulted by the ER physician patient will be promptly evaluated. 07/31: For surgery following reversal of mind by the patient. Initial attempt was to disimpact the patient but this has been ongoing and recurrent for this patient. Noted leukocytosis will monitor (1) Acute cholecystitis Current Visit: Yes Status: Acute Plan to address problem: Patient admitted and placed n.p.o. Discussed with surgeon plan for surgery today. We will also place patient on empiric IV antibiotics. (2) Abdominal pain likely underlying choledocholithiasis Current Visit: Yes Status: Acute Qualifiers: Abdominal location: unspecified location Qualified Code(s): R10.9 - Unspecified abdominal pain Plan to address problem: Possibly secondary to the cholecystitis bile ducts calculus. Will continue on IV analgesic medication. (3) Hypokalemia Current Visit: Yes Status: Acute Plan to address problem: Potassium will be repleted and will monitor chemistry. (4) DVT prophylaxis Current Visit: Yes Status: Acute Plan to address problem: Patient placed on sequential compression device. (5) probable constipation Stool softener started. (6) full code status Current Visit: Yes Status: Acute History Interval history: Patient seen and examined this morning awaiting surgery still with intermittent abdominal pain. Hospitalist Physical - Physical exam Narrative exam: VITAL SIGNS: Reviewed. GENERAL: The patient appears normally developed, Vital signs as documented. HEAD: No signs of head trauma. EYES: Pupils are equal. Extraocular motions intact. EARS: Hearing grossly intact. MOUTH: Oropharynx is normal. NECK: No adenopathy, no JVD. CHEST: Chest with clear breath sounds bilaterally. No wheezes, rales, or rhon chi. CARDIAC: Regular rate and rhythm. S1 and S2, without murmurs, gallops, or rubs. VASCULAR: No Edema. Peripheral pulses normal and equal in all extremities. ABDOMEN: Soft, tender and non distended. No rebound or guarding, and no masses palpated. Bowel Sounds normal. MUSCULOSKELETAL: Good range of motion of all major joints. Extremities without clubbing, cyanosis or edema. NEUROLOGIC EXAM: Alert and oriented x 3 No focal sensory or strength deficits. Speech normal. Follows commands. PSYCHIATRIC: Mood normal. SKIN: detial exam as documented in skin assessment - Constitutional Vitals: Temp Pulse Resp BP Pulse Ox 100.6 F H 94 H 18 127/84 96 08/01/19 11:42 08/01/19 11:42 08/01/19 05:19 08/01/19 11:42 08/01/19 11:42 General appearance: Present: no acute distress, well-nourished HEART Score - HEART Score EKG: Non-specific Age: 45-65 Risk factors: 1-2 risk factors Troponin: Troponin T < 0.010 ng/mL (0.00-0.029) 07/31/19 05:19 Troponin: < normal limit - Critical Actions Critical Actions: 4-6 pts:12-16.6% risk of adverse cardiac event. Should be admitted Results - Labs CBC & Chem 7: 08/01/19 08:36 08/01/19 05:30 Labs: Laboratory Last Values WBC 13.3 K/mm3 (4.5-11.0) H 08/01/19 08:36 RBC 4.42 M/mm3 (3.65-5.03) 08/01/19 08:36 Hgb 12.2 gm/dl (10.1-14.3) 08/01/19 08:36 Hct 36.8 % (30.3-42.9) 08/01/19 08:36 MCV 83 fl (79-97) 08/01/19 08:36 MCH 28 pg (28-32) 08/01/19 08:36 MCHC 33 % (30-34) 08/01/19 08:36 RDW 14.6 % (13.2-15.2) 08/01/19 08:36 Plt Count 227 K/mm3 (140-440) 08/01/19 08:36 Lymph % (Auto) 6.6 % (13.4-35.0) L 08/01/19 08:36 [place] % (Auto) 6.6 % (0.0-7.3) 08/01/19 08:36 Eos % (Auto) 0.0 % (0.0-4.3) 08/01/19 08:36 Baso % (Auto) 0.1 % (0.0-1.8) 08/01/19 08:36 Lymph # 0.9 K/mm3 (1.2-5.4) L 08/01/19 08:36 [place] # 0.9 K/mm3 (0.0-0.8) H 08/01/19 08:36 Eos # 0.0 K/mm3 (0.0-0.4) 08/01/19 08:36 Baso # 0.0 K/mm3 (0.0-0.1) 08/01/19 08:36 Seg Neutrophils % 86.7 % (40.0-70.0) H 08/01/19 08:36 Seg Neutrophils # 11.6 K/mm3 (1.8-7.7) H 08/01/19 08:36 PT 16.7 Sec. (12.2-14.9) H 08/01/19 08:36 INR 1.38 (0.87-1.13) H 08/01/19 08:36 APTT 28.4 Sec. (24.2-36.6) 07/31/19 00:32 Sodium 137 mmol/L (137-145) 08/01/19 05:30 Potassium 3.4 mmol/L (3.6-5.0) L 08/01/19 05:30 Chloride 99.8 mmol/L (98-107) 08/01/19 05:30 Carbon Dioxide 22 mmol/L (22-30) 08/01/19 05:30 Anion Gap 19 mmol/L 08/01/19 05:30 BUN 11 mg/dL (7-17) 08/01/19 05:30 Creatinine 0.8 mg/dL (0.7-1.2) 08/01/19 05:30 Estimated GFR > 60 ml/min 08/01/19 05:30 BUN/Creatinine Ratio 14 % 08/01/19 05:30 Glucose 109 mg/dL (65-100) H 08/01/19 05:30 Lactic Acid 0.90 mmol/L (0.7-2.0) 07/31/19 23:38 Calcium 8.5 mg/dL (8.4-10.2) 08/01/19 05:30 Total Bilirubin 0.70 mg/dL (0.1-1.2) 08/01/19 05:30 Direct Bilirubin 0.3 mg/dL (0-0.2) H 08/01/19 05:30 Indirect Bilirubin 0.4 mg/dL 08/01/19 05:30 AST 29 units/L (5-40) 08/01/19 05:30 ALT 23 units/L (7-56) 08/01/19 05:30 Alkaline Phosphatase 113 units/L (35-129) 08/01/19 05:30 Troponin T < 0.010 ng/mL (0.00-0.029) 07/31/19 05:19 NT-Pro-B Natriuret Pep 71.44 pg/mL (0-900) 07/31/19 00:37 Total Protein 7.5 g/dL (6.3-8.2) 08/01/19 05:30 Albumin 3.4 g/dL (3.9-5) L 08/01/19 05:30 Albumin/Globulin Ratio 0.8 % 08/01/19 05:30 Lipase 11 units/L (13-60) L 07/31/19 00:32 Microbiology: Microbiology 08/01/19 00:20 Peripheral/Venous Blood Culture - Preliminary Culture in Progress 08/01/19 Unknown Peripheral/Venous Blood Culture - Preliminary Culture in Progress Claros/IV: Voiding Method Toilet IV Catheter Type [Left Forearm INT / Saline Lock ] Active Medications - Current Medications Current Medications: Generic Name Dose Route Start Last Admin Trade Name Freq PRN Reason Stop Dose Admin Acetaminophen 650 mg 07/31/19 03:58 07/31/19 19:38 Tylenol PO 650 mg Q4H PRN Administration Pain MILD(1-3)/Fever >100.5/CONKLIN Acetaminophen/Hydrocodone Bitart 2 each 08/01/19 09:00 [place] 5/325 PO Q6H PRN Pain, Moderate (4-6) Amlodipine Besylate 10 mg 07/31/19 10:00 08/01/19 09:25 Amlodipine PO 10 mg DAILY EDWIN Administration Hydralazine HCl 10 mg 07/31/19 08:19 07/31/19 08:29 Apresoline IV 10 mg Q4HR PRN Administration Hypertension Sodium Chloride 1,000 mls @ 75 mls/hr 07/31/19 04:00 07/31/19 23:07 Nacl 0.9% 1000 Ml IV 75 mls/hr DIRECT EDWIN Administration Piperacillin Sod/Tazobactam Sod 4.5 gm in 100 mls @ 200 mls/hr 07/31/19 14:00 08/01/19 13:41 Zosyn/Ns 4.5gm/100ml IV 200 mls/hr Q8HR EDWIN Administration Protocol Morphine Sulfate 2 mg 07/31/19 03:58 08/01/19 13:41 Morphine IV 2 mg Q4H PRN Administration Pain, Moderate (4-6) Ondansetron HCl 4 mg 07/31/19 03:58 07/31/19 07:48 Zofran IV 4 mg Q8H PRN Administration Nausea And Vomiting Sodium Chloride 10 ml 07/31/19 10:00 08/01/19 09:26 Sodium Chloride Flush Syringe 10 Ml IV 10 ml BID EDWIN Administration Sodium Chloride 10 ml 07/31/19 03:58 Sodium Chloride Flush Syringe 10 Ml IV PRN PRN LINE FLUSH
[2019-08-01] MEDS ORDERED: BUPIVACAINE-EPINEPHRINE/PF 0.25%-1:200,000 (30 ML) VIAL INFILTRATI ONE (15:14)
[2019-08-01] MEDS ORDERED: LIDOCAINE (1%) 10 MG/1 ML VIAL 20 ML MDV ONE (15:14)
[2019-08-01] MEDS ORDERED: HYDROmorphone 1 MG/1 ML INJ ONE (15:35)
[2019-08-01] MEDS ORDERED: propofoL 200 MG/20 ML VIAL IV ONE (15:36)
[2019-08-01] MEDS ORDERED: ROCURONIUM 50 MG/5 ML INJ IV ONE (15:36)
[2019-08-01] MEDS ORDERED: LIDOCAINE MPF (2%) 20 MG/1 ML VIAL 5 ML ONE (15:36)
[2019-08-01] MEDS ORDERED: SUCCINYLCHOLINE CHLORIDE 200 MG/10 ML INJ MDV ONE (15:36)
[2019-08-01] MEDS ORDERED: HYDROmorphone 1 MG/1 ML INJ IV PRN (16:52)
--- NOTE | 2019-08-01 16:52 | Anesthesia Consultation ---
Anesthesia Consult and Med Hx Date of service: 08/01/19 - Airway Anesthetic Teeth Evaluation: Poor (loose right upper premolar), Crowns ROM Head & Neck: Adequate Mental/Hyoid Distance: Adequate Mallampati Class: Class III Intubation Access Assessment: Possibly Difficult - Pulmonary Exam CTA: Yes - Cardiac Exam Cardiac Exam: RRR - Pre-Operative Health Status ASA Pre-Surgery Classification: ASA2 Proposed Anesthetic Plan: General - Pulmonary Hx Smoking: No Hx Respiratory Symptoms: No - Cardiovascular System Hx Hypertension: Yes Hx Heart Attack/AMI: No - Central Nervous System CVA: No - Gastrointestinal Hx Gastroesophageal Reflux Disease: No - Endocrine Hx Renal Disease: No Hx Liver Disease: No Hx Insulin Dependent Diabetes: No Hx Non-Insulin Dependent Diabetes: No Hx Thyroid Disease: No - Other Systems Hx Obesity: Yes (BMI 34)
--- NOTE | 2019-08-01 16:52 | Anesthesia Day of Surgery ---
Anesthesia Day of Surgery - Day of Surgery Patient Examined: Yes Patient H&P Reviewed: Yes Patient is NPO: Yes
[2019-08-01] MEDS ORDERED: fentaNYL 100 MCG/2 ML INJ ONE ×2 (17:02→17:11)
[2019-08-01] MEDS ORDERED: GLYCOPYRROLATE 0.4 MG/2 ML INJ ONE (17:09)
[2019-08-01] MEDS ORDERED: NEOSTIGMINE 10MG/10 ML INJ MDV ONE (17:09)
[2019-08-01] MEDS ORDERED: BUPIVACAINE/PF (0.5%) 5 MG/1 ML 10 ML VIAL INFILTRATI ONE (17:13)
[2019-08-01] MEDS ORDERED: SODIUM CHLORIDE 0.9% IRRIG SOLN 2000 ML IR ONE (17:13)
[2019-08-01] MEDS ORDERED: LIDOCAINE 1%/EPINEPHRINE 1:100,000 VIAL (20 ML) INFILTRATI ONE (17:14)
--- NOTE | 2019-08-01 17:31 | Post Operative Note ---
Date of procedure: 08/01/19 (dictation:[id number]) Pre-op diagnosis: gallbladder obstruction with cholelithiasis Post-op diagnosis: other (gangrenous cholelithiasis) Findings: portion of gallbladder with necrosis Procedure: lap howard IVF 1000cc EBl ~50cc Anesthesia: KALYN Surgeon: KIMBERLEY MURRIETA Bristle Machine Operator: ARNAUD XIE Estimated blood loss: 50-100ml Pathology: list (gallbladder) Specimen disposition: to lab Condition: stable Disposition: PACU
--- NOTE | 2019-08-01 18:11 | Post Anesthesia Evaluation ---
- Post Anesthesia Evaluation Patient Participated: Yes Airway Patent: Yes Stable Respiratory Function: Yes Nausea/Vomiting: No Temp > 96.8F: Yes Pain Manageable: Yes Adequeate Hydration: Yes Anesthesia Complications: No
[2019-08-01] MEDS: SODIUM CHLORIDE 0.9% 1000 ML 1,000 ML IV SCH (18:26)
[2019-08-02] MEDS: MORPHINE 2 MG/1 ML INJ IV PRN ×2 (02:30→08:15)
[2019-08-02] MEDS: PIPERACIL/TAZOBACTA 4.5/NS 100 4.5 GM/100 ML VIAL IV SCH (05:18)
[2019-08-02] MEDS: SODIUM CHLORIDE 0.9% 1000 ML 1,000 ML IV SCH (05:40)
[2019-08-02 06:35] LABS: Hematocrit 31.2 % (30.3-42.9); Hemoglobin 10.2 gm/dl (10.1-14.3); Mean Corpuscular HGB Conc 33 % (30-34); Mean Corpuscular Volume 83 fl (79-97); Platelet Count 210 K/mm3 (140-440); Red Blood Count 3.74 M/mm3 (3.65-5.03); Red Cell Distribution Width 14.8 % (13.2-15.2)
[2019-08-02 07:12] LABS: BUN/Creatinine Ratio 15; Blood Urea Nitrogen 12 mg/dL (7-17); Calcium 8.2 mg/dL (8.4-10.2); Hemolysis Index 2
--- NOTE | 2019-08-02 08:45 | Progress Note ---
Assessment and Plan Assessment and plan: 49-year-old -Malagasy female presenting to the emergency room today complaining of abdominal pain. Abdominal pain is said to radiate towards the mid sternal area. She denies any nausea vomiting, no diarrhea, no hematuria or dysuria, no headache or dizziness, no fever or chills.. She denies any recent travel and no sick contacts. There is no no relieving or exacerbating factor for abdominal pain. Work-up in the emergency room including CT scan of the abdomen and pelvis reveals acute cholecystitis with bile duct calculus. General surgeon Dr. Cespedes has been consulted by the ER physician patient will be promptly evaluated. 07/31: For surgery following reversal of mind by the patient. Initial attempt was to disimpact the patient but this has been ongoing and recurrent for this patient. Noted leukocytosis will monitor 08/02/2019. Patient is status post lap howard postop day 1. Per notation portion of the gallbladder had necrosis. No new fever noted in the last 12 hours. Continue with pain control, antibiotics. Monitor cultures. Will discuss with surgery in respect to discharge. Diet per surgery. Encourage ambulation for DVT prophylaxis. (1) Acute cholecystitis with necrotic gallbladder (2) Abdominal pain likely underlying choledocholithiasis (3) Hypokalemia (4)probable constipation Stool softener started. (5) DVT prophylaxis Current Visit: Yes Status: Acute Plan to address problem: Patient placed on sequential compression device. (6) full code status Current Visit: Yes Status: Acute Hospitalist Physical - Constitutional Vitals: Temp Pulse Resp BP Pulse Ox 98.8 F 76 16 110/69 97 08/02/19 04:43 08/02/19 04:43 08/02/19 04:43 08/02/19 04:43 08/02/19 04:43 General appearance: Present: no acute distress, well-nourished HEART Score - HEART Score EKG: Non-specific Age: 45-65 Risk factors: 1-2 risk factors Troponin: Troponin T < 0.010 ng/mL (0.00-0.029) 07/31/19 05:19 Troponin: < normal limit - Critical Actions Critical Actions: 4-6 pts:12-16.6% risk of adverse cardiac event. Should be admitted Results - Labs CBC & Chem 7: 08/02/19 05:57 08/02/19 05:57 Labs: Laboratory Last Values WBC 7.5 K/mm3 (4.5-11.0) 08/02/19 05:57 RBC 3.74 M/mm3 (3.65-5.03) 08/02/19 05:57 Hgb 10.2 gm/dl (10.1-14.3) 08/02/19 05:57 Hct 31.2 % (30.3-42.9) 08/02/19 05:57 MCV 83 fl (79-97) 08/02/19 05:57 MCH 27 pg (28-32) L 08/02/19 05:57 MCHC 33 % (30-34) 08/02/19 05:57 RDW 14.8 % (13.2-15.2) 08/02/19 05:57 Plt Count 210 K/mm3 (140-440) 08/02/19 05:57 Lymph % (Auto) 6.6 % (13.4-35.0) L 08/01/19 08:36 Lane % (Auto) 6.6 % (0.0-7.3) 08/01/19 08:36 Eos % (Auto) 0.0 % (0.0-4.3) 08/01/19 08:36 Baso % (Auto) 0.1 % (0.0-1.8) 08/01/19 08:36 Lymph # 0.9 K/mm3 (1.2-5.4) L 08/01/19 08:36 Lane # 0.9 K/mm3 (0.0-0.8) H 08/01/19 08:36 Eos # 0.0 K/mm3 (0.0-0.4) 08/01/19 08:36 Baso # 0.0 K/mm3 (0.0-0.1) 08/01/19 08:36 Seg Neutrophils % 86.7 % (40.0-70.0) H 08/01/19 08:36 Seg Neutrophils # 11.6 K/mm3 (1.8-7.7) H 08/01/19 08:36 PT 16.7 Sec. (12.2-14.9) H 08/01/19 08:36 INR 1.38 (0.87-1.13) H 08/01/19 08:36 APTT 28.4 Sec. (24.2-36.6) 07/31/19 00:32 Sodium 138 mmol/L (137-145) 08/02/19 05:57 Potassium 3.6 mmol/L (3.6-5.0) 08/02/19 05:57 Chloride 103.3 mmol/L (98-107) 08/02/19 05:57 Carbon Dioxide 24 mmol/L (22-30) 08/02/19 05:57 Anion Gap 14 mmol/L 08/02/19 05:57 BUN 12 mg/dL (7-17) 08/02/19 05:57 Creatinine 0.8 mg/dL (0.7-1.2) 08/02/19 05:57 Estimated GFR > 60 ml/min 08/02/19 05:57 BUN/Creatinine Ratio 15 % 08/02/19 05:57 Glucose 128 mg/dL (65-100) H 08/02/19 05:57 Lactic Acid 0.90 mmol/L (0.7-2.0) 07/31/19 23:38 Calcium 8.2 mg/dL (8.4-10.2) L 08/02/19 05:57 Total Bilirubin 0.70 mg/dL (0.1-1.2) 08/01/19 05:30 Direct Bilirubin 0.3 mg/dL (0-0.2) H 08/01/19 05:30 Indirect Bilirubin 0.4 mg/dL 08/01/19 05:30 AST 29 units/L (5-40) 08/01/19 05:30 ALT 23 units/L (7-56) 08/01/19 05:30 Alkaline Phosphatase 113 units/L (35-129) 08/01/19 05:30 Troponin T < 0.010 ng/mL (0.00-0.029) 07/31/19 05:19 NT-Pro-B Natriuret Pep 71.44 pg/mL (0-900) 07/31/19 00:37 Total Protein 7.5 g/dL (6.3-8.2) 08/01/19 05:30 Albumin 3.4 g/dL (3.9-5) L 08/01/19 05:30 Albumin/Globulin Ratio 0.8 % 08/01/19 05:30 Lipase 11 units/L (13-60) L 07/31/19 00:32 Microbiology: Microbiology 08/01/19 00:20 Peripheral/Venous Blood Culture - Preliminary NO GROWTH AFTER 24 HOURS 08/01/19 Unknown Peripheral/Venous Blood Culture - Preliminary NO GROWTH AFTER 24 HOURS Claros/IV: Voiding Method Toilet IV Catheter Type [Left Forearm INT / Saline Lock ] Active Medications - Current Medications Current Medications: Generic Name Dose Route Start Last Admin Trade Name Freq PRN Reason Stop Dose Admin Acetaminophen 650 mg 07/31/19 03:58 07/31/19 19:38 Tylenol PO 650 mg Q4H PRN Administration Pain MILD(1-3)/Fever >100.5/CONKLIN Acetaminophen/Hydrocodone Bitart 2 each 08/01/19 09:00 [place] 5/325 PO Q6H PRN Pain, Moderate (4-6) Amlodipine Besylate 10 mg 07/31/19 10:00 08/01/19 09:25 Amlodipine PO 10 mg DAILY EDWIN Administration Hydralazine HCl 10 mg 07/31/19 08:19 07/31/19 08:29 Apresoline IV 10 mg Q4HR PRN Administration Hypertension Sodium Chloride 1,000 mls @ 75 mls/hr 07/31/19 04:00 08/02/19 05:40 Nacl 0.9% 1000 Ml IV 75 mls/hr DIRECT EDWIN Administration Piperacillin Sod/Tazobactam Sod 4.5 gm in 100 mls @ 200 mls/hr 07/31/19 14:00 08/02/19 05:18 Zosyn/Ns 4.5gm/100ml IV 200 mls/hr Q8HR EDWIN Administration Protocol Morphine Sulfate 2 mg 07/31/19 03:58 08/02/19 08:15 Morphine IV 2 mg Q4H PRN Administration Pain, Moderate (4-6) Ondansetron HCl 4 mg 07/31/19 03:58 07/31/19 07:48 Zofran IV 4 mg Q8H PRN Administration Nausea And Vomiting Sodium Chloride 10 ml 07/31/19 10:00 08/01/19 21:25 Sodium Chloride Flush Syringe 10 Ml IV 10 ml BID EDWIN Administration Sodium Chloride 10 ml 07/31/19 03:58 Sodium Chloride Flush Syringe 10 Ml IV PRN PRN LINE FLUSH
[2019-08-02] MEDS ORDERED: oxyCODONE /ACETAMINOPHEN 5-325MG TAB PO PRN (09:11)
--- NOTE | 2019-08-02 09:16 | Discharge Summary ---
Providers - Providers Date of Admission: 07/31/19 04:27 Attending physician: KELSEY RATLIFF MD 07/31/19 03:13 Consult to Physician [CONS] Routine Comment: Consulting Provider: ARNAUD XIE Physician Instructions: Reason For Exam: abd pain Primary care physician: [employer]ST CONTROL SPECIALIST Hospitalization Reason for admission: Abdominal pain Condition: Stable Hospital course: 49-year-old -[place] female presenting to the emergency room today complaining of abdominal pain. Abdominal pain is said to radiate towards the mid sternal area. She denies any nausea vomiting, no diarrhea, no hematuria or dysuria, no headache or dizziness, no fever or chills.. She denies any recent travel and no sick contacts. There is no no relieving or exacerbating factor for abdominal pain. Work-up in the emergency room including CT scan of the abdomen and pelvis reveals acute cholecystitis with bile duct calculus. General surgeon Dr. Cespedes has been consulted by the ER physician patient will be promptly evaluated. 07/31: For surgery following reversal of mind by the patient. Initial attempt was to disimpact the patient but this has been ongoing and recurrent for this patient. Noted leukocytosis will monitor 08/02/2019. Patient is status post lap howard postop day 1. Per notation portion of the gallbladder had necrosis. surgery evaluated today and cleared the patient for discharge and to follow-up with them in the office. No antibiotics was recommended (1) Acute cholecystitis with necrotic gallbladder (2) Abdominal pain likely underlying choledocholithiasis (3) Hypokalemia (4)probable constipation Stool softener started. Disposition: - TO HOME OR SELFCARE Time spent for discharge: 35 minutes Core Measure Documentation - Palliative Care Palliative Care/ Comfort Measures: Not Applicable - Core Measures Any of the following diagnoses?: none Exam - Physical Exam Narrative exam: VITAL SIGNS: Reviewed. GENERAL: The patient appears normally developed, Vital signs as documented. HEAD: No signs of head trauma. EYES: Pupils are equal. Extraocular motions intact. EARS: Hearing grossly intact. MOUTH: Oropharynx is normal. NECK: No adenopathy, no JVD. CHEST: Chest with clear breath sounds bilaterally. No wheezes, rales, or rhonchi. CARDIAC: Regular rate and rhythm. S1 and S2, without murmurs, gallops, or rubs. VASCULAR: No Edema. Peripheral pulses normal and equal in all extremities. ABDOMEN: Soft, tender only around surgical site and non distended. No rebound or guarding, and no masses palpated. Bowel Sounds normal. MUSCULOSKELETAL: Good range of motion of all major joints. Extremities without clubbing, cyanosis or edema. NEUROLOGIC EXAM: Alert and oriented x 3 No focal sensory or strength deficits. Speech normal. Follows commands. PSYCHIATRIC: Mood normal. SKIN: detial exam as documented in skin assessment - Constitutional Vitals: Temp Pulse Resp BP Pulse Ox 98.8 F 76 16 110/69 97 08/02/19 04:43 08/02/19 04:43 08/02/19 04:43 08/02/19 04:43 08/02/19 04:43 Plan Activity: advance as tolerated, fall precautions, avoid flexion Diet: advance as tolerated Follow up with: KIMBERLEY MURRIETA MD [Staff Physician] - 14 Days PRIMARY CARE, [Primary Care Provider] - 7 Days Prescriptions: Polyethylene Glycol 3350 [Miralax] 238 gm PO DAILY #10 powder oxyCODONE /ACETAMINOPHEN [Percocet 5/325 mg] 2 tab PO Q6H PRN #20 tablet PRN Reason: Pain, Moderate (4-6)
--- NOTE | 2019-08-02 10:22 | Progress Note ---
Assessment and Plan 49 yo F s/p laparoscopic cholecystectomy, POD 1 Plan: 1. reg diet 2. IVF 3. prn pain control - PO percocet 4. OOB/ambulate 5. IS/Pulm toilet 6. Ok to dc today from surgery standpoint. Written and verbal dc instructions given to patient. Instructed patient to call office and make appointment to follow up with Dr. Waldron in 2 weeks. D/W Dr. Moran Thank you, please call with questions. Subjective Date of service: 08/02/19 Narrative: Pt seen and examined. c/o soreness over RUQ. She states this is different than the preoperative pain she was experiencing. No f/c, n/v. Has been ambulating to bathroom. Tolerated diet this am. Pain is controlled with pain medications. Objective Vital Signs - 12hr 08/02/19 04:43 Temperature 98.8 F Pulse Rate 76 Respiratory 16 Rate Blood Pressure 110/69 O2 Sat by Pulse 97 Oximetry - General physical appearance Narrative Exam: Gen: AAOx3. NAD CV: s1, S2+ resp; even and unlabored Abd: soft, ND, mild periincisional TTP. no r/r/g. Incisions c/d/i Ext: no c/c/e - Labs 08/02/19 05:57 08/02/19 05:57 Diabetes panel 08/02/19 Range/Units 05:57 Sodium 138 (137-145) mmol/L Potassium 3.6 (3.6-5.0) mmol/L Chloride 103.3 (98-107) mmol/L Carbon Dioxide 24 (22-30) mmol/L BUN 12 (7-17) mg/dL Creatinine 0.8 (0.7-1.2) mg/dL Glucose 128 H (65-100) mg/dL Calcium 8.2 L (8.4-10.2) mg/dL Calcium panel 08/02/19 Range/Units 05:57 Calcium 8.2 L (8.4-10.2) mg/dL Pituitary panel 08/02/19 Range/Units 05:57 Sodium 138 (137-145) mmol/L Potassium 3.6 (3.6-5.0) mmol/L Chloride 103.3 (98-107) mmol/L Carbon Dioxide 24 (22-30) mmol/L BUN 12 (7-17) mg/dL Creatinine 0.8 (0.7-1.2) mg/dL Glucose 128 H (65-100) mg/dL Calcium 8.2 L (8.4-10.2) mg/dL Adrenal panel 08/02/19 Range/Units 05:57 Sodium 138 (137-145) mmol/L Potassium 3.6 (3.6-5.0) mmol/L Chloride 103.3 (98-107) mmol/L Carbon Dioxide 24 (22-30) mmol/L BUN 12 (7-17) mg/dL Creatinine 0.8 (0.7-1.2) mg/dL Glucose 128 H (65-100) mg/dL Calcium 8.2 L (8.4-10.2) mg/dL
[2019-08-02] MEDS: amLODIPine 10 MG TAB PO SCH (10:54)
[2019-08-02 12:11] VITALS: BP 119/76
--- NOTE | 2019-08-02 13:46 | Operative Report ---
PREOPERATIVE DIAGNOSIS: Gallbladder obstruction with cholelithiasis. POSTOPERATIVE DIAGNOSES: Gallbladder obstruction with cholelithiasis, gangrenous cholecystitis. PROCEDURE: Laparoscopic cholecystectomy. ATTENDING PHYSICIAN: Jere Waldron MD [employer] MACHINE: Dr. Daisha Parada. ANESTHESIA: General. ESTIMATED BLOOD LOSS: Approximately 50 mL. FLUIDS: 1 liter. FINDINGS: Markedly edematous and thickened gallbladder with necrotic dome and a very large stone in the fundus. Significant adhesions around the gallbladder. SPECIMENS: Gallbladder. DRAINS: None. COMPLICATIONS: None. DISPOSITION: Stable, transferred to Recovery Room. INDICATIONS: This is a 49-year-old female who presented to the Emergency Room with complaints of abdominal pain. Workup revealed distended gallbladder with possible stone in the neck of the gallbladder. The patient was admitted for evaluation. She had reported that this is similar to pain she has had in the past and after a bowel movement her pain resolved. Therefore, conservative care was started initially, she did not respond, eventually she decided to move forward with surgery. Procedure, risks, benefits were explained to the patient. Risks included but were not limited to infection, bleeding, pain, injury to surrounding structures, possible need for open surgery, possible need for further procedures in the future. The patient understood and consented. OPERATIVE NOTE: The patient was brought to the operating room and placed on the table in supine position. After adequate general anesthesia was established, the patient was prepped and draped in usual sterile fashion. SCDs were in place. Pressure points were padded. Timeout was called. I began by placing a Veress needle in left upper quadrant at Mahajan's point. I was able to insufflate on the first attempt. Using the Optiview technique, we placed a 5 mm port in the right lateral space of the abdomen. Under direct view, we placed a closing stitch using a 2-0 PDS on a Robert-Katlyn needle at the umbilicus and then placed a 12 mm port under direct vision. Two more 5 mm ports were placed in the subcostal region on the right. There were marked adhesions between the omentum and the gallbladder. This had to be dissected away. We then found a very distended gallbladder with a necrotic dome. This was very difficult to grasp. We initially tried to aspirate some bile. This helped to make the gallbladder a little bit softer so that we could grab it. We then elevated the gallbladder over the liver edge. I began by dissecting through the peritoneal covering. This was markedly thickened. Thankfully, I was able to eventually get down to the gallbladder itself. We used that plane to dissect the gallbladder out. I was eventually able to dissect out the cystic duct. We had a good critical view. We did not dissect out the cystic artery. I think that was divided with the Harmonic scalpel as we were dissecting through that area, but once we had a good critical view, Dr. Parada and I were both comfortable that we could clearly see the duct going into the gallbladder. I then placed 3 clips distally, 1 proximally on the cystic duct and divided it sharply. The lower boundary of the clips was fairly close to the gallbladder as I wanted to make sure that I was not tenting up the common duct. We then proceeded to remove the gallbladder from the liver bed with the Harmonic scalpel. The area was markedly edematous, but also very thick. There were some very dense adhesions in this area, almost suggestive of a chronic cholecystitis type picture. As we were dissecting, it became apparent that there was a very large stone in the fundus that was impacted. I think most likely this process probably began as an obstruction and then eventually lead to increased pressure in the dome and then necrosis. Once the gallbladder was dissected off, we placed it in an EndoCatch bag and left on the side. We thoroughly irrigated out the abdomen. The clips could clearly be seen on the cystic duct and looked very good. There was no bile leak. We did not find any arterial bleeding. There seemed to be some mild oozing from the edges of the dissection and at the very top of the gallbladder bed, it was unclear if there was some residual thickened peritoneal covering versus gallbladder; therefore, we cauterized that just in case there was some mucosal there and we cauterized some edges where there was bleeding, but again this was very minimal. After we thoroughly irrigated out everything, we packed that area with Surgicel as a precautionary measure. We then removed the 12 mm port and EndoCatch bag. I had to cut the fascia another 1 to 1.5 cm in order to get this very large stone out of that port site. We then used a 2-0 PDS suture to close that fascia with an open stitch and then I tied down the stitch we had initially placed. We seemed to have a good seal. The remaining ports were removed. Abdomen was desufflated. Additional local was injected into the port sites. A 4-0 Monocryl subcuticular stitches were then placed. Skin was cleaned and dried. Dermabond was placed. The patient tolerated the procedure well. There were no complications. All counts were correct at the end of the case. JOB# [id number] SHABNAM/MARIA LUISA
== END 2019-08-02 14:30 | disposition home or self-care (01) | DRG 418 ==
LOC: ED 23:27 → 3A 07-31 04:27
PROVIDERS: ADMIT Internal Medicine Geriatric Medicine; ATTEND Internal Medicine
PROC: 0FT44ZZ Resection of Gallbladder, Percutaneous Endoscopic Approach (ICD-10-PCS; principal; 2019-08-01)
DX: K80.00 Calculus of gallbladder with acute cholecystitis without obstruction (principal); R65.10 Systemic inflammatory response syndrome (SIRS) of non-infectious origin without acute organ dysfunction; E87.6 Hypokalemia; I10 Essential (primary) hypertension; G43.909 Migraine, unspecified, not intractable, without status migrainosus; F41.9 Anxiety disorder, unspecified; K82.A1 Gangrene of gallbladder in cholecystitis; E66.9 Obesity, unspecified; K59.00 Constipation, unspecified; Z79.899 Other long term (current) drug therapy; Z68.34 Body mass index [BMI] 34.0-34.9, adult
CPT/HCPCS: 36415; 71045; 74177; 76705; 80048; 80076; 82140; 83690; 83880; 84484; 85025; 85027; 85610; 85730; 87040; 88304; 93005; 96374; 96375; G0378; A4217; J0330; J0360; J1170; J2270; J2405; J2543; J2704; J2710; J3010; J3480; J7030; Q9967